=== PATIENT | male | born 1995 | race African-American/Black ===

== ENCOUNTER → 2021-02-27 | Outpatient (CLI) | payer BC, SELFPAY | END | disposition home or self-care (01) | PROVIDERS: Visit Provider Physician Assistant | DX: Z20.822 Contact with and (suspected) exposure to COVID-19 (principal) | CPT/HCPCS: 87635; U0005; U0003 ==

== ENCOUNTER 2024-12-30 08:52 | Observation (INO) | payer OTHER, SELFPAY ==
[2024-12-30] VITALS (9 sets, daily range): BP systolic 114–143; BP diastolic 57–85; PULSE 51–79; RESP 11–18; TEMP 36.2–37; O2SAT 98–100; BMI 22.8; BMI 22.9
[2024-12-30] MEDS: 0.9% Normal Saline (1000mL) 1,000 ML 999 ML IV (08:52)
--- NOTE | 2024-12-30 09:05 | CT_ITS ---
PROCEDURE: BRAIN/HEAD WITHOUT CONTRAST 12/30/2024 REASON FOR EXAM: NON-POSITIONAL VERTIGO TECHNIQUE: BRAIN/HEAD WITHOUT CONTRAST Coronal and Sagittal reconstruction series were provided. One or more dose reduction techniques were used (e.g., Automated exposure control, adjustment of the mA and/or kV according to patient size, use of iterative reconstruction technique. RADIATION DOSE SUMMARY: CTDlvol: <50 mGy DLP: 784 mGycm COMPARISON: None FINDINGS: Brain: There is no evidence of hemorrhage, acute ischemia or mass. No extra- axial fluid collection, midline shift or mass effect. CSF Spaces: Normal Sinuses/Mastoids: Clear. Middle ears are clear. Bones: None CT/Brain/Head without Contrast IMPRESSION: No acute intracranial abnormality. Reading Location: [id number]
--- NOTE | 2024-12-30 09:05 | CT_ITS ---
PROCEDURE: CTA HEAD AND NECK W/ CONTRAST 12/30/2024 REASON FOR EXAM: VERTIGO THAT IS NONPOSITIONAL TECHNIQUE: CTA HEAD AND NECK W/ CONTRAST Multiplanar Sagittal and Coronal images were obtained. 3D post processing was performed CONTRAST: Isovue 370 VOLUME: 100 mL One or more dose reduction techniques were used (e.g., Automated exposure control, adjustment of the mA and/or kV according to patient size, use of iterative reconstruction technique). RADIATION DOSE SUMMARY: CTDlvol: 25.5 mGy DLP: 1076.46 mGycm COMPARISON: None FINDINGS: Mildly enlarged right lobe of the thyroid gland. Subcentimeter hypodensity is seen in its inferior portion. Aortic Arch: Normal size and branching pattern. No significant atherosclerotic plaque. Brachiocephalic and Subclavians: Unremarkable RIGHT Carotid: Right CCA: Unremarkable. Right ICA: Unremarkable. Right ECA: Unremarkable. LEFT Carotid: Left CCA: Unremarkable. Left ICA: Unremarkable. Left ECA: Unremarkable. Vertebrals: Codominant. Arise from the subclavians. Both vertebrals form the basilar. RIGHT Vertebral: Unremarkable. LEFT Vertebral: Unremarkable. Anatomy: [place] anatomy is normal. Aneurysm or avm: No intracranial aneurysms or large vascular malformations are identified. Anterior cerebral arteries: Unremarkable: Middle cerebral arteries: Unremarkable. Basilar artery: Unremarkable. Posterior cerebral arteries: Unremarkable. Other major branches of the posterior circulation: Unremarkable. Major venous structures: Unremarkable. CT/CTA Head AND Neck W/ Contrast IMPRESSION: Unremarkable examination. Reading Location: [place] [id number]
--- NOTE | 2024-12-30 09:05 | CT_ITS ---
PROCEDURE: CTA CHEST W/WO CONTRAST 12/30/2024 REASON FOR EXAM: HARD TO BREATHE, NEAR SYNCOPE TECHNIQUE: CTA CHEST W/WO CONTRAST Multiplanar Sagittal and Coronal images were obtained. 3D post processing was performed CONTRAST: Isovue 370 VOLUME: 100 mL One or more dose reduction techniques were used (e.g., Automated exposure control, adjustment of the mA and/or kV according to patient size, use of iterative reconstruction technique). RADIATION DOSE SUMMARY: CTDlvol: 24.62 mGy DLP: 990.04 mGycm COMPARISON: None FINDINGS: Hardware: EKG electrodes. Lymph nodes: No significant lymphadenopathy is seen. Heart: Heart is not enlarged. No coronary artery calcification. Thoracic Aorta: No thoracic aortic aneurysm or dissection. Pulmonary Vessels: Well opacified. No evidence of pulmonary embolism. Lungs and Airways: Lungs are clear. Pleura: Unremarkable Upper Abdomen: Unremarkable Bones: Bone windows are unremarkable. CT/CTA Chest W/WO Contrast IMPRESSION: No evidence of pulmonary embolism. The lungs are clear. Reading Location: [place] [id number]
--- NOTE | 2024-12-30 09:07 | EKG12_ITS ---
Test Reason : SYNCOPE Blood Pressure : */* mmHG Vent. Rate : 75 BPM Atrial Rate : 75 BPM P-R Int : 156 ms QRS Dur : 84 ms QT Int : 356 ms P-R-T Axes : 76 85 60 degrees QTcB Int : 397 ms Normal sinus rhythm Normal ECG Confirmed by MARVIN LEIGH, NANCY ([id number]), desk editor MARIYA HENDRICKS ([id number]) on 01/02/2025 9:14:41 AM Referred By: [facility] Confirmed By: NANCY WONG MD
[2024-12-30 09:20] LABS: Hematocrit 35.9 % (40-54); Hemoglobin 11.9 g/dL (13.0-16.5); Immature Granulocytes Count 0.030 X10^3/uL (0.0-0.0); Mean Corp Hgb Conc 33.1 g/dL (32-36); Mean Corpuscular Volume 81.6 fL (80-94); Mean Platelet Vol. 10.4 fl (6.2-12.0); NRBC Flagged by Analyzer 0 % (0-5); Platelet Count 277 K/mm3 (150-450); RBC Distribution Width CV 13.0 % (11.6-14.6); RBC Distribution Width SD 38.8 fl (35.1-43.9); Red Blood Count 4.40 M/mm3 (4.6-6.2); White Blood Count 6.7 K/mm3 (4.4-11.0)
[2024-12-30 09:41] LABS: AST(SGOT) 19 U/L (<=37); Alanine Aminotransfer ALT/SGPT 16 U/L (<=46); Albumin, Serum 4.4 g/dL (3.5-5.0); Alkaline Phosphatase 47 U/L (40-129); Anion Gap 14 (5-15); BUN 20 mg/dL (4-19); BUN/Creat Ratio 20.8 RATIO (10-20); Calcium,Total 9.0 mg/dL (7.6-11.0); Carbon Dioxide 21.7 mmol/L (21.0-32.0); Chloride 103 mmol/L (98-108); Estimated Creatinine Clearance 131.43 ml/min (50-250); Globulin 2.2 g/dL (2.2-4.2); Glucose 122 mg/dL (70-99); Potassium 4.1 mmol/L (3.3-5.1)
--- OUTSIDE RECORDS SUMMARY | 2024-12-30 10:48 | XMS RPT_ITS | CCD ---
Author Organization [facility] Care Team Providers Care Production Inspector Name Role Phone KARLIARMAAN Unavailable Unavailable DAISHA BEAU M Unavailable Unavailable Kadie Zaman MD Primary Care Provider Kadie Zaman MD Primary Care Provider Kadie Zaman MD Primary Care Provider Felipa COMMERCIAL DESIGNER.BATCH TANK CONTROLLER, Abbie Unavailable Sergio COMMERCIAL DESIGNER.[employer]LE [employer] SQL DEVELOPER, Emily Unavailable SELF Referring Unavailable EMILY HILL Attending Unavailable KADIE ZAMAN Primary Care Unavailable EMILY HILL Referring Unavailable KADIE ZAMAN Primary Care Unavailable Allergies Allergy Classification Reported Allergen(s) Allergy Type Date of Onset Reaction(s) Facility (9 sources) black oak trees [Other] Propensity to adverse reactions 1 Other: See Comments [facility] Work Phone: Medications Current Medications Medication Drug Class(es) Dates Sig (Normalized) Sig (Original) [id number] 200 actuat albuterol 0.09 mg/actuat metered dose inhaler (18 sources) beta2-Adrenergic Agonist Start: 05-20-2013 End: 11-01-2024 take 2 puff(s) by inhalation every six hours as needed for wheezing albuterol HFA (PROVENTIL HFA, VENTOLIN HFA) 90 mcg/actuation inhaler Indications: Wheezing , History of asthma Inhale 2 puffs as instructed every 6 hours as needed for wheezing/shortness of breath. 1 each 2 11/01/2024 Active Comment on above: Inhale 2 Puffs as in structed every 6 hours as needed for wheezing/shortness of breath. (JACKIE for Ventolin with dose counter) cyclobenzaprine hydrochloride 10 mg oral tablet (4 sources) Muscle Relaxant Start: 11-02-2023 take 1 tablet by mouth three times daily as needed for pain cyclobenzaprine (FLEXERIL) 10 mg tablet Indications: Muscle pain Take 1 tablet by mouth three times a day as needed for pain. 90 tablet 11/02/2023 Active doxycycline hyclate 100 mg oral tablet (1 source) Tetracycline-class Drug Start: 07-06-2023 End: 07-13-2023 take 1 tablet by mouth twice daily doxycycline (VIBRA-TABS) 100 mg tablet Indications: Disease caused by mycoplasma Take 1 tablet by mouth two times a day for 7 days. 14 tablet 0 07/06/2023 07/13/2023 Active Comment on above: Take 1 tablet by aly th two times a day for 7 days. fluticasone propionate 0.05 mg/actuat metered dose nasal spray (16 sources) Corticosteroid Start: 08-08-2019 take 2 spray(s) by mouth once daily fluticasone (FLONASE) 50 mcg/actuation nasal spray Indications: Frequent sinus infections , Rhinitis, unspecified type Use 2 Sprays in each nostril once daily. Rinse mouth after use. 1 Bottle 2 08/08/2019 Active Comment on above: Use 2 Sprays in each nostril once daily. Rinse mouth after use. ibuprofen 600 mg oral tablet (6 sources) Nonsteroidal Anti-inflammatory Drug Start: 07-14-2023 take 1 tablet by mouth every eight hours as needed for pain ibuprofen (MOTRIN) 600 mg tablet Indications: Rib pain on right side Take 1 tablet by mouth every 8 hours as needed for pain. 30 tablet 07/14/2023 Active Comment on above: Take 1 tablet by aly th every 8 hours as needed for pain. loratadine 10 mg oral tablet (17 sources) Start: 08-08-2019 End: 09-14-2021 take 1 tablet by mouth once daily loratadine (CLARITIN) 10 mg tablet Indications: Seasonal allergic rhinitis, unspecified trigger Take 1 tablet by mouth once daily. 30 tablet 2 09/14/2021 Active Comment on above: Take 1 tablet by aly th once daily. Completed/Discontinued Medications Medication Drug Class(es) Dates Sig (Normalized) Sig (Original) ondansetron 4 mg disintegrating oral tablet (1 source) Serotonin-3 Receptor Antagonist Start: 08-08-2019 End: 09-14-2021 take 1 tablet by mouth every eight hours as needed for nausea and nausea ondansetron orally disintegrating (ZOFRAN ODT) 4 mg disintegrating tablet Indications: Nausea Take 1 tablet by mouth every 8 hours as needed for Nausea/Vomiting. 24 tablet 0 08/08/2019 09/14/2021 Discontinued (Other) Comment on above: Take 1 tablet by aly every 8 hours as needed for Nausea/Vomiting. sertraline 50 mg oral tablet (1 source) Serotonin Reuptake Inhibitor Start: 01-04-2021 End: 09-14-2021 take 0.5 tablet by mouth once daily, then take 1 tablet by mouth once daily sertraline (ZOLOFT) 50 mg tablet Indications: BECKIE (generalized anxiety disorder) , Current moderate episode of major depressive disorder without prior episode (HCC) Take 1/2 tablet by mouth daily for 1 week, then take 1 tablet daily. 30 tablet 2 01/04/2021 09/14/2021 Discontinued (Other) Comment on above: Take 1/2 tablet by out daily for 1 week, then take 1 tablet daily. Problems Active Problems Problem Classification Problem Date Documented Date Episodic/Chronic Asthma (20 sources) Mild intermittent asthma; Translations: [Mild intermittent asthma, uncomplicated] Onset: 07-07-2012 Chronic Attention-deficit, conduct, and disruptive behavior disorders (16 sources) Attention deficit hyperactivity disorder; Translations: [Attention-deficit hyperactivity disorder, unspecified type] 05-13-2021 Chronic Bacterial infection; unspecified site (2 sources) Mycoplasma infection; Translations: [Mycoplasma infection, unspecified site] 06-26-2023 Episodic Cardiac dysrhythmias (1 source) Palpitations; Translations: [Palpitations] Episodic Genitourinary symptoms and ill-defined conditions (20 sources) H/O: kidney disease; Translations: [Personal history of other diseases of urinary system] Onset: 07-08-2012 07-08-2012 Episodic Heart valve disorders (19 sources) Heart murmur; Translations: [Cardiac murmur, unspecified] Onset: 11-01-2024 07-07-2012 Episodic Immunizations and screening for infectious disease (10 sources) Patient encounter status; Translations: [Encounter for immunization] Onset: 11-01-2024 Episodic Nephritis; nephrosis; renal sclerosis (3 sources) Persistent hematuria; Translations: [Recurrent and persistent hematuria with unspecified morphologic changes] Onset: 11-01-2024 11-01-2024 Chronic Other connective tissue disease (1 source) Impingement syndrome of right shoulder region; Translations: [Impingement syndrome of right shoulder] Episodic Other connective tissue disease (2 sources) Muscle pain; Translations: [Myalgia, unspecified site] 11-02-2023 Episodic Other lower respiratory disease (2 sources) Wheezing; Translations: [Wheezing] Episodic Other lower respiratory disease (2 sources) Rib pain; Translations: [Pleurodynia] 07-14-2023 Episodic Other lower respiratory disease (1 source) H/O: asthma; Translations: [Personal history of other diseases of the respiratory system] 11-01-2024 Episodic Other lower respiratory disease (1 source) Wheezing; Translations: [Wheezing] Onset: 11-01-2024 Episodic Other lower respiratory disease (1 source) Personal history of other diseases of the respiratory system; Translations: [History of asthma] Onset: 11-01-2024 Episodic Other nervous system disorders (1 source) Bilateral carpal tunnel syndrome; Translations: [Carpal tunnel syndrome, bilateral upper limbs] Chronic Other non-traumatic joint disorders (1 source) Pain in right knee; Translations: [Pain in joint, lower leg] Episodic Other screening for suspected conditions (not mental disorders or infectious disease) (3 sources) Echocardiogram abnormal; Translations: [Abnormal findings on diagnostic imaging of heart and coronary circulation] Onset: 11-01-2024 11-01-2024 Episodic Other upper respiratory disease (1 source) Seasonal allergic rhinitis; Translations: [Other seasonal allergic rhinitis] Chronic Other upper respiratory infections (1 source) Chronic sinusitis; Translations: [Chronic sinusitis, unspecified] Chronic Screening and history of mental health and substance abuse codes (2 sources) Encounter for screening for depression; Translations: [Encounter for screening examination for other mental health and behavioral disorders] Onset: 11-01-2024 Episodic Past or Other Problems Problem Classification Problem Date Documented Da te Episodic/Chronic Essential hypertension (6 sources) Hypertensive disorder; Translations: [Essential (primary) hypertension] Onset: 07-08-2012 Resolved: 02-27-2015 02-27-2015 Chronic Other diseases of kidney and ureters (16 sources) Orthostatic proteinuria; Translations: [Orthostatic proteinuria, unspecified] Onset: 07-12-2012 08-17-2012 Episodic Other nutritional; endocrine; and metabolic disorders (6 sources) Obesity; Translations: [Obesity, unspecified] Onset: 08-17-2012 Resolved: 02-27-2015 02-27-2015 Chronic Residual codes; unclassified (18 sources) FH: Cardiomyopathy; Translations: [Family history of ischemic heart disease and other diseases of the circulatory system] Onset: 07-08-2012 07-08-2012 Episodic Residual codes; unclassified (15 sources) History of hematuria; Translations: [Personal history of other specified conditions] Onset: 02-27-2015 02-27-2015 Episodic Residual codes; unclassified (1 source) Family history of ischemic heart disease and other diseases of the circulatory system; Translations: [Family history of cardiomyopathy] Onset: 07-08-2012 Episodic Results Test Name Value Interpretation Reference Range Facility Comprehensive metabolic 2000 panelon 12-22-2024 Albumin [Mass/Vol] 4.9 g/dL Normal 3.9-4.9 [facility] Comment on above: Order Comment: Nam snyder Type: BLOOD SPECIMEN Ordering Facility: [facility] Address: [address] [place] [address] Performed By: #### 2 4323-8 #### [facility] CLIA [id number] [address] [place] [address] [place] ALP [Catalytic activity/Vol] 52 U/L Normal 38-113 [facility] Comment on above: Order Comment: Davidi lillian Type: BLOOD SPECIMEN Ordering Facility: [facility] Address: [address] [place] [address] Performed By: #### 2 4323-8 #### [facility] CLIA [id number] [address] [place] [address] [place] ALT [Catalytic activity/Vol] 13 U/L Normal 10-54 [facility] Comment on above: Order Comment: Davidi men Type: BLOOD SPECIMEN Ordering Facility: [facility] Address: [address] [place] [address] Performed By: #### 2 4323-8 #### [facility] CLIA [id number] [address] [place], [place] [id number] [place] Anion gap [Moles/Vol] 14 mmol/L Normal 8-15 [facility] Comment on above: Order Comment: Speci men Type: BLOOD SPECIMEN Ordering Facility: [facility] Address: [address] [place] [address] Performed By: #### 2 4323-8 #### [facility] CLIA [id number] [address] [place], [place] [address] [place] AST [Catalytic activity/Vol] 22 U/L Normal 14-40 [facility] Comment on above: Order Comment: Speci men Type: BLOOD SPECIMEN Ordering Facility: [facility] Address: [address] [place] [address] Performed By: #### 2 4323-8 #### [facility] CLIA [id number] [address] [place], [place] [address] [place] Bilirubin [Mass/Vol] 0.5 mg/dL Normal 0.2-1.3 [facility] Comment on above: Order Comment: Speci men Type: BLOOD SPECIMEN Ordering Facility: [facility] Address: [address] [place] [address] Performed By: #### 2 4323-8 #### [facility] CLIA [id number] [address] [place], [place] [address] [place] Calcium [Mass/Vol] 9.8 mg/dL Normal 8.5-10.2 [facility] Comment on above: Order Comment: Speci men Type: BLOOD SPECIMEN Ordering Facility: [facility] Address: [address] [place], [place] [id number] Performed By: #### 2 4323-8 #### [facility] CLIA [id number] [address] [place], [place] [address] [place] Chloride [Moles/Vol] 104 mmol/L Normal 98-107 [facility] Comment on above: Order Comment: Speci men Type: BLOOD SPECIMEN Ordering Facility: [facility] Address: [address] [place] [address] Performed By: #### 2 4323-8 #### [facility] CLIA [id number] [address] [place] [address] [place] CO2 [Moles/Vol] 23 mmol/L Normal 22-30 [facility] Comment on above: Order Comment: Speci men Type: BLOOD SPECIMEN Ordering Facility: [facility] Address: [address] [place] [address] Performed By: #### 2 4323-8 #### [facility] CLIA [id number] [address] [place] [address] [place] Creatinine [Mass/Vol] 0.89 mg/dL Normal 0.73-1.22 [facility] Comment on above: Order Comment: Speci men Type: BLOOD SPECIMEN Ordering Facility: [facility] Address: [address] [place] [address] Performed By: #### 2 4323-8 #### [facility] CLIA [id number] [address] [place] [address] [place] eGFRcr SerPlBld CKD-EPI 2020 120 mL/min/1.73m??? Normal >=60 [facility] Comment on above: Order Comment: Speci men Type: BLOOD SPECIMEN Ordering Facility: [facility] Address: [address] [place] [address] Result Comment: Bree mated Glomerular Filtration Rate (eGFR) is calculated using the 2020 CKD-EPI creatinine equation. This equation utilizes serum creatinine, sex, and age as parameters. The creatinine assay has traceable calibration to isotope dilution-mass spectrometry. Refer to KDIGO guidelines for clinical interpretation. In patients with unstable renal function, e.g. those with acute kidney injury, the eGFR may not accurately reflect actual GFR. Performed By: #### 2 4323-8 #### [facility] CLIA [id number] [address] [place] [address] [place] Glucose [Mass/Vol] 91 mg/dL Normal 74-99 [facility] Comment on above: Order Comment: Nam snyder Type: BLOOD SPECIMEN Ordering Facility: [facility] Address: [address] [place] [address] Result Comment: The [place] [employer] (ADA) provides guidance for cutoff values for fasting glucose and random glucose. The ADA defines fasting as no caloric intake for at least 8 hours. Fasting plasma glucose results between 100 to 125 mg/dL indicate increased risk for diabetes (prediabetes). Fasting plasma glucose results greater than or equal to 126 mg/dL meet the criteria for diagnosis of diabetes. In the absence of unequivocal hyperglycemia, results should be confirmed by repeat testing. In a patient with classic symptoms of hyperglycemia or hyperglycemic crisis, random plasma glucose results greater than or equal to 200 mg/dL meet the criteria for diagnosis of diabetes. Reference: Standards of Medical Care in Diabetes 2016, [place] [employer]. Diabetes Care. 2016.39(Suppl 1). Performed By: #### 2 4323-8 #### [facility] CLIA [id number] [address] [place] [address] [place] Potassium [Moles/Vol] 4.1 mmol/L Normal 3.7-5.1 [facility] Comment on above: Order Comment: Nam snyder Type: BLOOD SPECIMEN Ordering Facility: [facility] Address: [address] [place] [address] Performed By: #### 2 4323-8 #### [facility] CLIA [id number] [address] [place], [place] [address] [place] Protein [Mass/Vol] 7.5 g/dL Normal 6.3-8.0 [facility] Comment on above: Order Comment: Nam snyder Type: BLOOD SPECIMEN Ordering Facility: [facility] Address: [address] [place] [address] Performed By: #### 2 4323-8 #### [facility] CLIA [id number] [address] [place] [address] [place] Sodium [Moles/Vol] 141 mmol/L Normal 136-144 [facility] Comment on above: Order Comment: Speci men Type: BLOOD SPECIMEN Ordering Facility: [facility] Address: [address] [place] [address] Performed By: #### 2 4323-8 #### [facility] CLIA [id number] [address] [place] [address] [place] Urea nitrogen [Mass/Vol] 17 mg/dL Normal 9-24 [facility] Comment on above: Order Comment: Speci men Type: BLOOD SPECIMEN Ordering Facility: [facility] Address: [address] [place] [address] Performed By: #### 2 4323-8 #### [facility] CLIA [id number] [address] [place] [address] [place] Urinalysis complete panel (U )on 12-22-2024 Bacteria LM.HPF (Urine sed) [#/Area] Negative Normal Negative [facility] Comment on above: Order Comment: Speci men Type: URINE SPECIMEN Ordering Facility: [facility] Address: [address] [place] [address] Performed By: #### 2 4356-8 #### [facility] CLIA [id number] [address] [place] [address] [place] Bilirubin Ql (U) Negative Normal Negative [facility] Comment on above: Order Comment: Speci men Type: URINE SPECIMEN Ordering Facility: [facility] Address: [address] [place] [address] Performed By: #### 2 4356-8 #### [facility] CLIA [id number] [address] [place] [address] [place] Clarity (Unsp spec) Clear Normal Clear [facility] Comment on above: Order Comment: Speci men Type: URINE SPECIMEN Ordering Facility: [facility] Address: [address] [place] [address] Performed By: #### 2 4356-8 #### [facility] CLIA [id number] [address] [place] [address] [place] Color (U) Yellow Normal Yellow [facility] Comment on above: Order Comment: Speci men Type: URINE SPECIMEN Ordering Facility: [facility] Address: [address] [place] [address] Performed By: #### 2 4356-8 #### [facility] CLIA [id number] [address] [place] [address] [place] Epithelial cells LM.HPF (Urine sed) [#/Area] None Seen Normal [facility] Comment on above: Order Comment: Speci men Type: URINE SPECIMEN Ordering Facility: [facility] Address: [address] [place] [address] Performed By: #### 2 4356-8 #### [facility] CLIA [id number] [address] [place] [address] [place] Glucose Test strip (U) [Mass/Vol] Negative Normal Negative [facility] Comment on above: Order Comment: Speci men Type: URINE SPECIMEN Ordering Facility: [facility] Address: [address] [place] [address] Performed By: #### 2 4356-8 #### [facility] CLIA [id number] [address] [place] [address] [place] Hemoglobin Ql (U) 2+ Abnormal Negative [facility] Comment on above: Order Comment: Speci men Type: URINE SPECIMEN Ordering Facility: [facility] Address: [address] [place], [place] [address] Performed By: #### 2 4356-8 #### [facility] CLIA [id number] [address] [place] [address] [place] Hyaline casts (Urine sed) [#/Area] 0 /[LPF] Normal 0 /LPF [facility] Comment on above: Order Comment: Speci men Type: URINE SPECIMEN Ordering Facility: [facility] Address: [address] [place] [address] Performed By: #### 2 4356-8 #### [facility] CLIA [id number] [address] [place] [address] [place] Ketones Ql (U) Negative Normal Negative [facility] Comment on above: Order Comment: Speci men Type: URINE SPECIMEN Ordering Facility: [facility] Address: [address] [place] [address] Performed By: #### 2 4356-8 #### [facility] CLIA [id number] [address] [place] [address] [place] Leukocyte esterase Test strip Ql (U) Negative Normal Negative [facility] Comment on above: Order Comment: Speci men Type: URINE SPECIMEN Ordering Facility: [facility] Address: [address] [place] [address] Performed By: #### 2 4356-8 #### [facility] CLIA [id number] [address] [place] [address] [place] Nitrite Ql (U) Negative Normal Negative [facility] Comment on above: Order Comment: Speci men Type: URINE SPECIMEN Ordering Facility: [facility] Address: [address] [place] [address] Performed By: #### 2 4356-8 #### [facility] CLIA [id number] [address] [place] [address] [place] pH (U) 5.5 [pH] Normal 5.0-8.0 [facility] Comment on above: Order Comment: Speci men Type: URINE SPECIMEN Ordering Facility: [facility] Address: [address] [place] [address] Performed By: #### 2 4356-8 #### [facility] CLIA [id number] [address] [place] [address] [place] Protein (U) [Mass/Vol] Trace Abnormal Negative [facility] Comment on above: Order Comment: Speci men Type: URINE SPECIMEN Ordering Facility: [facility] Address: [address] [place] [address] Performed By: #### 2 4356-8 #### [facility] CLIA [id number] [address] [place] [address] [place] RBC LM.HPF (Urine sed) [#/Area] /[HPF] Abnormal 0-2 /HPF [facility] Comment on above: Order Comment: Speci men Type: URINE SPECIMEN Ordering Facility: [facility] Address: [address] [place] [address] Performed By: #### 2 4356-8 #### [facility] CLIA [id number] [address] [place] [address] [place] Specific gravity (U) [Rel density] 1.023 Normal 1.005-1.030 [facility] Comment on above: Order Comment: Speci men Type: URINE SPECIMEN Ordering Facility: [facility] Address: [address] [place] [address] Performed By: #### 2 4356-8 #### [facility] CLIA [id number] [address] [place] [address] [place] Urobilinogen Ql (U) 0.2 EU/dL Normal 0.2-1.0 EU/dL [facility] Comment on above: Order Comment: Speci men Type: URINE SPECIMEN Ordering Facility: [facility] Address: [address] [place] [address] Performed By: #### 2 4356-8 #### [facility] CLIA [id number] [address] [place] [address] [place] WBC LM.HPF (Urine sed) [#/Area] 0-5 /HPF Normal 0-5 /HPF [facility] Comment on above: Order Comment: Speci men Type: URINE SPECIMEN Ordering Facility: [facility] Address: [address] [place] [address] Performed By: #### 2 4356-8 #### [facility] CLIA [id number] [address] [place] [address] [place] [address] [place] CNOVon 11-01-2024 CNOV Office Visit ([facility] ) RAFY HONG ([id number]) 1995 M Date Time Provider Department 11/01/24 2:00 PM EMILY HILL [facility] During your visit today, we recorded the following information about you: Pulse Respiration Blood pressure Weight 63/minute 16/minute 114/68 83.7 kg Height 1.86 m Emily Hill APRN.[address]AC[address] SQL DEVELOPER 11/01/2024 3:00 PM Signed Subjective Patient ID: Rafy is a 28 year old male who presents for Physical. HPI Rafy Claire Hong is a 28-year-old male with a history of asthma, presenting for an annual wellness visit, with additional concerns of back pain, hematuria, and a heart murmur. Annual Wellness Exam: - No significant issues since last visit. - Adheres to a healthy diet and remains physically active. - Denies anxiety or depression. - Declines a COVID booster. - No current use of muscle relaxers or ibuprofen for back pain. Asthma: - Denies current symptoms; has not used an inhaler recently. - Reports outgrowing most symptoms since childhood. - Previously required daily inhaler and breathing treatments. - Denies recent dyspnea. - Reports seasonal allergies, but no significant symptoms this year. - Uses Flonase and Claritin PRN. Back Pain: - Intermittent back pain, exacerbated by bending and lifting. - No need for refills of muscle relaxers or ibuprofen. Hematuria: - History of persistent microscopic hematuria. - Evaluated by a pediatric kidney specialist in [place] before age 19-2012. - Recent ultrasound at [place] to assess bladder emptying; no recent specialist visits. -US kidney last year, did not see urology or nephrology. Heart Murmur: - History of heart murmur monitored by cardiology during childhood. - No recent follow-up. - Denies chest pain, palpitations, or dyspnea. - Reports occasional dizziness with positional changes, resolving within seconds to minutes. - No limitations on walking or climbing stairs. - Echo 2013, painting instructor. Family History: - Rafy's mother has stage 3 heart failure. ROS Eyes: (-) itchy eyes Ears/Nose/Mouth/Throat : (-) rhinorrhea Cardiovascular: (-) chest pain, (-) palpitations, (-) exercise intolerance Respiratory: (-) shortness of breath, (-) wheezing Musculoskeletal: (+) intermittent musculoskeletal pain Neurological: (+) dizziness Objective BP 114/68 Pulse 63 Resp 16 Ht 186 cm (6' 1.23) Wt 83.7 kg (184 lb 8.4 oz) BMI 24.19 kg/m? Physical Exam Vitals and nursing note reviewed. Constitutional: Appearance: Normal appearance. HENT: Head: Normocephalic and atraumatic. Eyes: Conjunctiva/sclera: Conjunctivae normal. Neck: Thyroid: No thyroid mass or thyromegaly. Vascular: Normal carotid pulses. No carotid bruit or JVD. Cardiovascular: Rate and Rhythm: Normal rate and regular rhythm. Pulses: Carotid pulses are 2+ on the right side and 2+ on the left side. Radial pulses are 2+ on the right side and 2+ on the left side. Heart sounds: Normal heart sounds. Pulmonary: Effort: Pulmonary effort is normal. Breath sounds: Normal breath sounds. Abdominal: General: Bowel sounds are normal. Palpations: Abdomen is soft. Musculoskeletal: Right lower leg: No edema. Left lower leg: No edema. Skin: General: Skin is warm and dry. Neurological: General: No focal deficit present. Mental Status: He is alert and oriented to person, place, and time. Latest Ref Rn 11/02/2023 Protein, Total 6.3 - 8.0 g/dL 7.0 Albumin 3.9 - 4.9 g/dL 4.6 Calcium 8.5 - 10.2 mg/dL 9.7 Bilirubin, Total 0.2 - 1.3 mg/dL 0.4 Alkaline Phosphatase 38 - 113 U/L 46 AST 14 - 40 U/L 18 ALT 10 - 54 U/L 10 Glucose 74 - 99 mg/dL 93 BUN 9 - 24 mg/dL 21 Creatinine 0.73 - 1.22 mg/dL 0.98 Sodium 136 - 144 mmol/L 139 Potassium 3.7 - 5.1 mmol/L 4.4 Chloride 98 - 107 mmol/L 104 CO2 22 - 30 mmol/L 26 Anion Gap 8 - 15 mmol/L 9 eGFR >=60 mL/min/1.73m? 109 Total Cholesterol, Nonfasting <200 mg/dL 171 Triglycerides, Nonfasting <150 mg/dL 43 HDL Cholesterol, Nonfasting >39 mg/dL 62 LDL Cholesterol Calculated, Nonfasting <100 mg/dL 100 (H) Non HDL Cholesterol, Nonfasting <130 mg/dL 109 VLDL Cholesterol, Nonfasting <30 mg/dL 9 Total Chol/HDL Ratio, Nonfasting <5.10 mg/dL 2.76 LDL/HDL Ratio, Nonfasting <2.54 mg/dL 1.61 1. Wellness examination (Z00.00) - Conducted a comprehensive wellness examination. - Vital signs including blood pressure and heart rate are within normal limits. - Patient is maintaining a healthy diet and staying active. - No significant issues reported since the last visit. -US kidney 2023 unremarkable. 2. Screening for depression (Z13.31) 3. Encounter for screening examination for other mental health and behavioral disorders (Z13.39) - Screened for anxiety and depression; no concerns reported. 4. Encounter for immunization (Z23) - Discussed COVID booster; no decision m (more content not included)... Normal [facility] XR Ribs - right Views and est PAon 07-14-2023 IMPRESSION: No radiographic evidence of acute displaced right rib fracture. Field Agronomist: [facility] Transcribe Date/Time: Jul 14 2023 12:47P Dictated by : SHANAE DIAZ MD This examination was interpreted and the report reviewed and electronically signed by: SHANAE DIAZ MD on Jul 14 2023 12:48PM [facility] DIVISION OF RADIOLOGY * * *Final Report* * * DATE OF EXAM: Jul 14 2023 12:43PM WOX [id number] - XR RIB/CHST 3V AP RIB/OBL/CHST R / PROCEDURE REASON: Rib pain on right side * * * * Physician Interpretation * * * * TITLE: XR RIB/CHST 3V AP RIB/OBL/CHST R CLINICAL INDICATION: Right rib pain TECHNIQUE: 3 view right sided rib series with inclusion of a single frontal view of the chest COMPARISON: Remote chest x-ray dated July 06, 2008 FINDINGS: Normal cardiomediastinal silhouette. No focal consolidation. No discernible pleural effusion or pneumothorax. No acute displaced right rib fracture identified. DIVISION OF RADIOLOGY Provider, [facility] - 07/14/2023 * * *Final Report* * * DATE OF EXAM: Jul 14 2023 12:43PM WOX [id number] - XR RIB/CHST 3V AP RIB/OBL/CHST R / PROCEDURE REASON: Rib pain on right side * * * * Physician Interpretation * * * * TITLE: XR RIB/CHST 3V AP RIB/OBL/CHST R CLINICAL INDICATION: Right rib pain TECHNIQUE: 3 view right sided rib series with inclusion of a single frontal view of the chest COMPARISON: Remote chest x-ray dated July 06, 2008 FINDINGS: Normal cardiomediastinal silhouette. No focal consolidation. No discernible pleural effusion or pneumothorax. No acute displaced right rib fracture identified. IMPRESSION IMPRESSION: No radiographic evidence of acute displaced right rib fracture. Field Agronomist: [facility] Transcribe Date/Time: Jul 14 2023 12:47P Dictated by : SHANAE DIAZ MD This examination was interpreted and the report reviewed and electronically signed by: SHANAE DIAZ MD on Jul 14 2023 12:48PM EST [facility] Radiology Study observation (narrative) [facility] XR Ribs - right Views and Ch est PAOrdered By: [facility] Provider on 07-14-2023 [facility] US Kidney - bilateral and Ur inary bladderon 06-26-2023 [facility] URINALYSIS, REFLEX MICROSCOP ICon 06-24-2023 Bacteria LM.HPF (Urine sed) [#/Area] Negative Negative /HPF [facility] Bilirubin Ql (U) Negative Negative [facility] Clarity (Unsp spec) Clear Clear [facility] Color (U) Yellow Yellow [facility] Epithelial cells LM.HPF (Urine sed) [#/Area] None Seen [facility] Glucose Test strip (U) [Mass/Vol] Negative Negative [facility] Hemoglobin Ql (U) 3+ Abnormal Negative [facility] Hyaline casts (Urine sed) [#/Area] 1-3 /LPF Abnormal 0 /LPF [facility] Ketones Ql (U) Negative Negative [facility] Leukocyte esterase Test strip Ql (U) Negative Negative [facility] Nitrite Ql (U) Negative Negative [facility] pH (U) 5.5 [pH] <8.5 [facility] Protein (U) [Mass/Vol] Negative Negative [facility] RBC LM.HPF (Urine sed) [#/Area] 3-5 /HPF Abnormal 0-2 /HPF [facility] Specific gravity (U) [Rel density] 1.028 1.005 - 1.030 [facility] Urobilinogen Ql (U) 0.2 EU/dL 0.2-1.0 EU/dL [facility] WBC LM.HPF (Urine sed) [#/Area] 0-5 /HPF 0-5 /HPF [facility] UA DIP, URINE (POC)on 2023 BILIRUBIN UA (POCT) Negative Negative [facility] CLARITY UA (POCT) Clear [facility] COLOR UA (POCT) Minerva [facility] GLUCOSE UA (POCT) Negative Negative mg/dL [facility] Hemoglobin Ql (U) Moderate Abnormal Negative [facility] KETONE UA (POCT) Negative Negative mg/dL [facility] LEUKOCYTES UA (POCT) Negative Negative [facility] NITRITE UA (POCT) Negative Negative [facility] PH UA (POCT) 5.5 4.5 - 8.0 [facility] Protein Ql (U) Negative Negative mg/dL [facility] SPECIFIC GRAVITY UA (POCT) >=1.030 1.005 - 1.030 [facility] UROBILINOGEN UA (POCT) 0.2 E.U./dL Normal E.U./dL [facility] Comprehensive metabolic 2000 panelon 09-20-2022 Albumin [Mass/Vol] 5.1 g/dL High 3.9 - 4.9 g/dL [facility] ALP [Catalytic activity/Vol] 54 U/L 38 - 113 U/L [facility] ALT [Catalytic activity/Vol] 11 U/L 10 - 54 U/L [facility] Anion gap [Moles/Vol] 13 mmol/L 9 - 18 mmol/L [facility] AST [Catalytic activity/Vol] 22 U/L 14 - 40 U/L [facility] Bilirubin [Mass/Vol] 0.7 mg/dL 0.2 - 1.3 mg/dL [facility] Calcium [Mass/Vol] 9.8 mg/dL 8.5 - 10. 2 mg/dL [facility] Chloride [Moles/Vol] 101 mmol/L 97 - 105 mmol/L [facility] CO2 [Moles/Vol] 24 mmol/L 22 - 30 mmol/L [facility] Creatinine [Mass/Vol] 1.07 mg/dL 0.73 - 1.22 mg/dL [facility] Estimated Glomerular Filtration Rate 99 mL/min/1.73m >=60 mL/min/1.73m [facility] Glucose [Mass/Vol] 84 mg/dL 74 - 99 mg/dL [facility] Potassium [Moles/Vol] 4.5 mmol/L 3.7 - 5.1 mmol/L [facility] Protein [Mass/Vol] 7.7 g/dL 6.3 - 8.0 g/dL [facility] Sodium [Moles/Vol] 138 mmol/L 136 - 144 mmol/L [facility] Urea nitrogen [Mass/Vol] 13 mg/dL 9 - 24 mg/dL [facility] TSH BLDon 09-20-2022 TSH Qn 0.657 m[IU]/L 0.270 - 4.200 mIU/L [facility] CBC panel Auto (Bld)on 09-19 Erythrocyte distribution width (RBC) [Ratio] 13.1 % 11.5 - 15.0 % [facility] Hematocrit (Bld) [Volume fraction] 42.6 % 39.0 - 51.0 % [facility] Hemoglobin (Bld) [Mass/Vol] 13.6 g/dL 13.0 - 17.0 g/dL [facility] MCH (RBC) [Entitic mass] 26.9 pg 26.0 - 34.0 pg [facility] MCHC (RBC) [Mass/Vol] 31.9 g/dL 30.5 - 36.0 g/dL [facility] MCV (RBC) [Entitic vol] 84.4 fL 80.0 - 100.0 fL [facility] Nucleated RBC (Bld) [#/Vol] <0.01 k/uL [facility] Platelet mean volume (Bld) [Entitic vol] 10.3 fL 9.0 - 12.7 fL [facility] Platelets (Bld) [#/Vol] 329 10*3/uL 150 - 400 k/uL [facility] RBC (Bld) [#/Vol] 5.05 10*6/uL 4.20 - 6.0 0 m/uL [facility] WBC (Bld) [#/Vol] 6.83 10*3/uL 3.70 - 11. 00 k/uL [facility] COVID 19, HALEY [facility](RT COLLECT )on 02-28-2021 SARS-CoV-2 (COVID-19) RNA HALEY+probe Ql (Unsp spec) Not detected Normal Not Detect [facility] Comment on above: Order Comment: Reaso n for Exam: exposure Result Comment: Norm al Reference Range: Not Detected Method:(RT-PCR) real-time reverse transcriptase PCR [employer] Ter[employer] Radios Instrument *The Food and Drug Administration (FDA) has issued an Emergency Use Authorization (EAU) for the Ter[employer]ios SARS-CoV-2 Assay for the rapid detection of the virus that causes COVID-19. This test has been validated, but the FDAs independent review of this validation is pending. *Negative results do not preclude infection and should not be used as the sole basis for treatment or patient management. Optimum specimen types and timing for peak viral levels during infections caused by SARS-CoV-2 have not been determined. Collection of multiple specimens from the same patient may be necessary to detect the virus. The possibility of a false negative result should be considered if the patient has clinical presentation or has had recent exposure. Performed By: #### L [id number] #### [facility] [address] [place], [address] Urgent Care Visit Reporton 1 Urgent Care Visit Report [facility] [address] [place] [address] 6 [place], [place] [address] OFFICE VISIT Date of Service: 02/27/21 MR#: [id number] Acct: [id number] Name: RAFY HONG Rep #: [id number] : 1995 Provider: WAGNER reed Age/Sex: 25/M Location: [facility] Status: Signed Intake Vital Signs 02/27/21 16:55 Weight: 206 lb 6 oz BP 122/68 H Blood Pressure Location Lt brachial Position Sitting Respiration 16 Pulse 63 Pulse Source Monitor Temp 97.5 F L Temp Source Temporal Pulse Oximetry (%) 98 Oxygen Delivery Method room air Intake Visit Reasons: COVID HPI HPI Details: RAFY HONG, is a 25 M who presents to the office today for covid19 screening, and live-in girlfriend w/ uri complaints has been exposed to co-workers dx'd w/ COVID19. Asymptomatic. ROS Const Constitutional: No other (as above) Exam Const General: cooperative, healthy appearing, comfortable and no acute distress Nutritional Appearance: average body habitus and well nourished Orientation: alert, awake and oriented x3 HENMT Head: normal to inspection Ears: hearing grossly normal bilaterally, external ears normal, TM's normal bilaterally and EAC's normal Nose: external nose normal, nares normal, septum normal and no nasal discharge Mouth: oral mucosae normal, lip normal, tongue normal and moist mucous membranes Throat: posterior oropharynx normal, tonsils normal, uvula midline and postnasal drainage Eyes General: appearance normal, both eyes and all related structures Neck Neck: normal visual inspection, full ROM, no lymphadenopathy, no meningeal signs and supple Neck mass: No Thyroid: thyroid normal Lymphatic: no lymphadenopathy noted Chest Chest palpation inspection: normal inspection of the chest Resp Effort Inspection: normal respiratory effort, able to speak in complete sentences, symmetric chest movement and no cough Auscultation: Bilateral: Clear to Auscultation Cardio Palpation: normal PMI Rate: regular rate Rhythm: regular rhythm Heart Sounds: S1 normal, S2 normal, no gallops, no murmurs and no rubs Pulses: radial pulses present GI Inspection: normal to inspection Palpation: soft and nontender Skin General: no rashes or lesions noted Neuro General: patient alert, patient awake, patient oriented x3 and gait normal Cognition: normal cognition Speech: speech normal Gait: normal gait Motor: muscle tone normal throughout Sensory Exam: no sensory deficits noted Psych Appearance: grossly normal Mental Status: mental status grossly normal Mood: congruent mood Affect: normal affect Speech and Movement: speech and movement normal Attitude: cooperative Thought Process: normal Thought Content: normal Judgment: judgment good Coding Level of Care Code Off vis,new,level 2 Diagnoses Exposure to COVID-19 virus Z20.822 Assessment and Plan Assessment and Plan (1) Exposure to COVID-19 virus: Status: Acute Orders: Orders: COVID 19, PCR [facility](RT COLLECT) Today Z20.822 Plan - Pascual EDWARD PA: Nasopharyngeal swab obtained for send out for COVID-19 screening to [facility] lab; patient aware we will contact them once results are available. Follow-up with the now clinic on an as-needed basis only. Patient states acknowledging understanding all the above. This note was generated with Biba dictation software. It may contain incorrect words, spelling, and punctuation that were not noted in checking the note before signing. 02/27/21 1753 Date Pascual EDWARD Cosigner Signature: Date (if applicable) CC: Normal [facility] CR Hand Complete 3+ Views Jeannette henning 10-15-2018 CR Hand Complete 3+ Views Right Patient Name: RAFY HONG Diagnostic Radiology Exam Date/Time 10/15/2018 19:23:30 EDT Exam CR Hand Complete 3+ Views Right Ordering Physician WAGNER TALLEY TAYLOR Accession Number [id number] CPT4 Codes 71154 () Reason For Exam right hand pain, ulnar, punched door, obvious deformity Report Examination: Right hand Clinical Indication: Pain and deformity after punching door Comparison: None Findings: Three views right hand demonstrate a transverse mid diaphysis fracture of the fifth metacarpal. The distal fracture fragment is minimally displaced laterally and exhibits moderate apex dorsal angulation measuring 60 degrees. There is slight clockwise rotation of the distal fracture fragment. There is associated soft tissue swelling. No intra-articular fracture extension. No other fracture identified. There is a small bone island within the third metacarpal head. Impression: Transverse, mildly displaced and moderately angulated mid diaphysis fifth metacarpal fracture. Report Dictated on Final Dictating Physician: MD ANDREA ANTHONY J Signed Date and Time: 10/15/2018 7:35 pm Signed by: MD ANDREA ANTHONY J Transcribed Date and Time: 10/15/2018 7:36 Normal [facility] Emergency Room Note on 06-26-2017 [place] [facility] Note Normal [facility] [place] Pat Eduon 06-26-2017 Pat Edu Normal [facility] [place] Patient Summary Documentson 06-26-2017 Patient Summary Documents Normal [facility] [place] Vital Signs Date Time Vital Sign Value Performing Clinician Facility 11-01-2024 14:00-0400 Body height 186 cm Emily Hill COMMERCIAL DESIGNER.[address] SQL DEVELOPER Work Phone: [facility] 11-01-2024 14:00-0400 Body mass index (BMI) [Ratio] 24.19 kg/m2 Emily Hill COMMERCIAL DESIGNER.[address] SQL DEVELOPER Work Phone: [facility] 11-01-2024 14:00-0400 Body weight 83.7 kg Emily Hill COMMERCIAL DESIGNER.[address] SQL DEVELOPER Work Phone: [facility] 11-01-2024 14:00-0400 Diastolic blood pressure 68 mm[Hg] Emily Hill COMMERCIAL DESIGNER.[address] SQL DEVELOPER Work Phone: [facility] 11-01-2024 14:00-0400 Heart rate 63 /min Emily Hill COMMERCIAL DESIGNER.[address] SQL DEVELOPER Work Phone: [facility] 11-01-2024 14:00-0400 Respiratory rate 16 /min Emily Hill COMMERCIAL DESIGNER.[address] SQL DEVELOPER Work Phone: [facility] 11-01-2024 14:00-0400 Systolic blood pressure 114 mm[Hg] Emily Hill COMMERCIAL DESIGNER.[address] SQL DEVELOPER Work Phone: [facility] 11-02-2023 09:18-0400 Body height 190.5 cm Abbie Felipa COMMERCIAL DESIGNER.BATCH TANK CONTROLLER Work Phone: [facility] 11-02-2023 09:18-0400 Body mass index (BMI) [Ratio] 24.25 kg/m2 Abbie Felipa COMMERCIAL DESIGNER.BATCH TANK CONTROLLER Work Phone: [facility] 11-02-2023 09:18-0400 Body weight 88 kg Abbie Felipa COMMERCIAL DESIGNER.BATCH TANK CONTROLLER Work Phone: [facility] Comment on above: with steel toe boots 11-02-2023 09:18-0400 Diastolic blood pressure 62 mm[Hg] Abbie Felipa COMMERCIAL DESIGNER.BATCH TANK CONTROLLER Work Phone: [facility] 11-02-2023 09:18-0400 Heart rate 76 /min Abbie Felipa COMMERCIAL DESIGNER.BATCH TANK CONTROLLER Work Phone: [facility] 11-02-2023 09:18-0400 Respiratory rate 12 /min Abbie Felipa COMMERCIAL DESIGNER.BATCH TANK CONTROLLER Work Phone: [facility] 11-02-2023 09:18-0400 SaO2% (BldA) [Mass fraction] 100 % Abbie Felipa COMMERCIAL DESIGNER.BATCH TANK CONTROLLER Work Phone: [facility] 11-02-2023 09:18-0400 Systolic blood pressure 136 mm[Hg] Abbie Felipa COMMERCIAL DESIGNER.BATCH TANK CONTROLLER Work Phone: [facility] 07-14-2023 12:22-0500 Body temperature 97.59 [degF] Camila Praisler-Wood COMMERCIAL DESIGNER.BATCH TANK CONTROLLER Work Phone: [facility] 07-14-2023 12:22-0500 Body weight 86.18 kg Camila Prajyothiler-Wood COMMERCIAL DESIGNER.BATCH TANK CONTROLLER Work Phone: [facility] 07-14-2023 12:22-0500 Diastolic blood pressure 74 mm[Hg] Camila Praisler-Wood COMMERCIAL DESIGNER.BATCH TANK CONTROLLER Work Phone: [facility] 07-14-2023 12:22-0500 Heart rate 53 /min Camila Praisler-Wood COMMERCIAL DESIGNER.BATCH TANK CONTROLLER Work Phone: [facility] 02-27-2024 12:22-0500 Respiratory rate 18 /min Camila Praisler-Wood COMMERCIAL DESIGNER.BATCH TANK CONTROLLER Work Phone: [facility] 07-14-2023 12:22-0500 SaO2% (BldA) [Mass fraction] 99 % Camila Praisler-Wood COMMERCIAL DESIGNER.BATCH TANK CONTROLLER Work Phone: [facility] 07-14-2023 12:22-0500 Systolic blood pressure 129 mm[Hg] Camila Praisler-Wood COMMERCIAL DESIGNER.BATCH TANK CONTROLLER Work Phone: [facility] 06-24-2023 13:07-0500 Body weight 88.22 kg Abbie Felipa COMMERCIAL DESIGNER.BATCH TANK CONTROLLER Work Phone: [facility] 06-24-2023 13:07-0500 Diastolic blood pressure 84 mm[Hg] Abbie Felipa COMMERCIAL DESIGNER.BATCH TANK CONTROLLER Work Phone: [facility] 06-24-2023 13:07-0500 Heart rate 56 /min Abbie Felipa COMMERCIAL DESIGNER.BATCH TANK CONTROLLER Work Phone: [facility] 06-24-2023 13:07-0500 Respiratory rate 16 /min Abbie Felipa COMMERCIAL DESIGNER.BATCH TANK CONTROLLER Work Phone: [facility] 06-24-2023 13:07-0500 SaO2% (BldA) [Mass fraction] 97 % Abbie Felipa COMMERCIAL DESIGNER.BATCH TANK CONTROLLER Work Phone: [facility] 06-24-2023 13:07-0500 Systolic blood pressure 128 mm[Hg] Abbie Felipa COMMERCIAL DESIGNER.BATCH TANK CONTROLLER Work Phone: [facility] 06-23-2023 16:05-0500 Body temperature 98.4 [degF] Matthew Pendlebury COMMERCIAL DESIGNER.BATCH TANK CONTROLLER Work Phone: [facility] 06-23-2023 16:05-0500 Body weight 89.36 kg Matthew Pendlebury COMMERCIAL DESIGNER.BATCH TANK CONTROLLER Work Phone: [facility] 06-23-2023 16:05-0500 Diastolic blood pressure 83 mm[Hg] Matthew Pendlebury COMMERCIAL DESIGNER.BATCH TANK CONTROLLER Work Phone: [facility] 06-23-2023 16:05-0500 Heart rate 60 /min Matthew Tillman COMMERCIAL DESIGNER.BATCH TANK CONTROLLER Work Phone: [facility] 06-23-2023 16:05-0500 Respiratory rate 18 /min Matthew Tillman COMMERCIAL DESIGNER.BATCH TANK CONTROLLER Work Phone: [facility] 06-23-2023 16:05-0500 SaO2% (BldA) [Mass fraction] 100 % Matthew Tillman COMMERCIAL DESIGNER.BATCH TANK CONTROLLER Work Phone: [facility] 06-23-2023 16:05-0500 Systolic blood pressure 132 mm[Hg] Matthew Tillman COMMERCIAL DESIGNER.BATCH TANK CONTROLLER Work Phone: [facility] 09-19-2022 14:57-0400 Body height 190.5 cm Kadie Zaman MD Work Phone: [facility] 09-19-2022 14:57-0400 Body temperature 98.1 [degF] Kadie Zaman MD Work Phone: [facility] 09-19-2022 14:57-0400 Body weight 94.8 kg Kadie Zaman MD Work Phone: [facility] 09-19-2022 14:57-0400 Diastolic blood pressure 62 mm[Hg] Kadie Zaman MD Work Phone: [facility] 09-19-2022 14:57-0400 Heart rate 59 /min Kadie Zaman MD Work Phone: [facility] 09-19-2022 14:57-0400 Respiratory rate 18 /min Kadie Zaman MD Work Phone: [facility] 09-19-2022 14:57-0400 SaO2% (BldA) [Mass fraction] 97 % Kadie Zaman MD Work Phone: [facility] 09-19-2022 14:57-0400 Systolic blood pressure 120 mm[Hg] Kadie Zaman MD Work Phone: [facility] 09-14-2021 08:49-0400 Body height 190.5 cm Kadie Zaman MD Work Phone: [facility] 09-14-2021 08:49-0400 Body weight 94.35 kg Kadie Zaman MD Work Phone: [facility] 09-14-2021 08:49-0400 Diastolic blood pressure 82 mm[Hg] Kadie Zaman MD Work Phone: [facility] 09-14-2021 08:49-0400 Heart rate 74 /min Kadie Zaman MD Work Phone: [facility] 09-14-2021 08:49-0400 Systolic blood pressure 130 mm[Hg] Kadie Zaman MD Work Phone: [facility] Encounters Encounter Date Encounter Type Care Provider Facility Start: 12-26-2024 End: 12-27-2024 Refill Kadie Zaman MD Work Phone: [facility] [place] Comment on above: Refill Request Start: 12-22-2024 End: 12-22-2024 ambulatory [facility] Facility:[facility] Start: 11-01-2024 End: 11-01-2024 Patient encounter procedure Emily Hill APRN.[address] SQL DEVELOPER Work Phone: [facility] [place] Comment on above: Wellness examination (Primary Dx); Screening for depression; Encounter for screening examination for other mental health and behavioral disorders; Encounter for immunization; Microscopic hematuria; Wheezing; History of asthma; Family history of cardiomyopathy; Abnormal echocardiogram; Murmur; Mild intermittent asthma without complication (HCC); Persistent hematuria Start: 11-01-2024 End: 11-01-2024 Patient encounter status Emily Hill APRN.ORACLE PL SQL DEVELOPER Work Phone: [facility] Start: 11-01-2024 End: 11-01-2024 ambulatory SELF Facility:[facility] [place] Start: 11-01-2024 Encounter for genera l adult medical examination without abnormal findings EMILY [facility] Start: 11-02-2023 End: 11-02-2023 Patient encounter procedure Abbie Leo APRN.BATCH TANK CONTROLLER Work Phone: [facility] [place] Comment on above: Wellness examination (Primary Dx); Muscle pain; Other microscopic hematuria; Encounter for therapeutic drug monitoring; Screening for lipid disorders; Encounter for screening for diabetes mellitus Start: 11-02-2023 End: 11-02-2023 Patient encounter status Abbie Leo APRN.BATCH TANK CONTROLLER Work Phone: [facility] Work Phone: Start: 09-25-2023 Telephone encounter Kadie cole MD Work Phone: [facility] [place] Comment on above: Reschedule Yearly fr om 09/25/23 (Patient had to leave due to provider running behind) Start: 07-14-2023 End: 07-14-2023 Subsequent hospital visit by physician [facility] [place] Work Phone: Radiology Comment on above: Rib pain on right si de [R07.81] Start: 07-14-2023 End: 07-14-2023 Patient encounter procedure Camila Kerr APRN.BATCH TANK CONTROLLER Work Phone: [facility] Comment on above: Rib pain on right si de (Primary Dx) Start: 07-06-2023 ambulatory Kadie butcher MD Work Phone: [facility] [place] Comment on above: 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 Start: 06-26-2023 End: 06-26-2023 Subsequent hospital visit by physician [facility] Work Phone: Radiology Comment on above: Other microscopic he maturia [R31.29] Start: 06-25-2023 Telephone encounter Matthew barger APRN.BATCH TANK CONTROLLER Work Phone: [facility] Comment on above: Results Start: 06-24-2023 ambulatory Abbie INIGUEZBATCH TANK CONTROLLER Work Phone: [facility] [place] Comment on above: Urine sample and ulysses ting Start: 06-24-2023 Telephone encounter Abiel Cano MD Work Phone: [facility] Comment on above: Results (Hematuria, casts) Start: 06-24-2023 End: 06-24-2023 Patient encounter procedure Abbie Felipa COMMERCIAL DESIGNER.BATCH TANK CONTROLLER Work Phone: [facility] [place] Comment on above: Other microscopic he maturia (Primary Dx) Start: 06-23-2023 End: 06-23-2023 Office outpatient visit 15 minutes Matthew Primo COMMERCIAL DESIGNER.BATCH TANK CONTROLLER Work Phone: [facility] Comment on above: Dysuria (Primary Dx) ; Hematuria, unspecified type Start: 09-19-2022 End: 09-19-2022 Patient encounter procedure Kadie Zaman MD Work Phone: [facility] [place] Comment on above: Routine medical exam (Primary Dx); Mild intermittent asthma without complication; Bilateral carpal tunnel syndrome; History of glomerulonephritis; Asymptomatic microscopic hematuria; Chronic pain of both knees; Palpitations; Impingement syndrome of right shoulder; Encounter for immunization; Special screening examination for viral disease; Screening for HIV (human immunodeficiency virus) Start: 09-19-2022 End: 09-19-2022 Patient encounter status Kadie Zaman MD Work Phone: [facility] [place] Start: 09-14-2021 End: 09-14-2021 Patient encounter procedure Kadie Zaman MD Work Phone: [facility] [place] Comment on above: Routine medical exam (Primary Dx); Sinobronchitis; Seasonal allergic rhinitis, unspecified trigger; Wheezing; Mild intermittent asthma without complication Start: 09-14-2021 End: 09-14-2021 Patient encounter status Kadie Zaman MD Work Phone: [facility] [place] Start: 06-26-2017 End: 06-26-2017 Emergency department patient visit [facility] Facility:B Procedures Date Procedure Procedure Detail Performing Clinician Start: 11-01-2024 Adult depression scr eening assessment Emily Hill COMMERCIAL DESIGNER.ORACLE PL SQL DEVELOPER Work Phone: Start: 11-02-2023 Adult depression scr eening assessment X[facility] [place] Work Phone: Start: 07-14-2023 Radex ribs uni w/pos teroant ch minimum 3 views Camila Kerr COMMERCIAL DESIGNER.BATCH TANK CONTROLLER Work Phone: Start: 06-26-2023 Us retroperitoneal r eal time w/image complete Abbie Leo COMMERCIAL DESIGNER.BATCH TANK CONTROLLER Work Phone: Start: 06-23-2023 Urnls dip stick/tabl et reagent auto microscopy Matthew Primo COMMERCIAL DESIGNER.BATCH TANK CONTROLLER Work Phone: Start: 06-23-2023 Urnls dip stick/tabl et rgnt auto w/o microscopy [facility] Provider Start: 09-14-2021 Adult depression scr eening assessment Kadie Zaman MD Work Phone: Plan of Treatment Date Care Activity Detail Author Start: 09-19-2032 Urine microalbumin profile [facility] Start: 11-01-2025 End: 11-01-2025 Patient encounter procedure 11/01/2025 3:00 PM EDT Office Visit [facility] [place] [address] [place], [place] [phone] Kadie Zaman MD [address] [place], [place] [phone] Annual exam [facility] [place] Comment on above: Annual exam Start: 11-01-2025 Annual PCP Team Chronic Disease Visit Annual PCP Team Chronic Disease Visit [facility] Start: 11-01-2025 Anxiety Screening Anxiety Screening [facility] Start: 11-01-2025 Covid-19 Vaccine ( season) Covid-19 Vaccine ( season) [facility] Comment on above: Postponed from 01/17/2024 (Declined at t his time) Start: 11-01-2025 Depression Screening Depression Screening [facility] Start: 01-16-2025 Influenza vaccination [facility] Start: 01-03-2025 End: 01-03-2025 Patient encounter procedure 01/03/2025 6:40 PM EDT Office Visit [facility] [place] [address] [place], [place] [phone] Kadie Zaman MD [address] [place], [place] [phone] medication refill [facility] Comment on above: medication refill Start: 11-01-2024 Annual PCP Team Chronic Disease Visit Annual PCP Team Chronic Disease Visit [facility] Start: 11-01-2024 Anxiety Screening Anxiety Screening [facility] Start: 11-01-2024 End: 01-31-2025 Comprehensive metabolic 2000 panel - Serum or Plasma COMPREHENSIVE METABOLIC PANEL Lab Routine Microscopic hematuria Expected: 11/01/2024, Expires: 01/31/2025 [facility] Comment on above: Expected: 11/01/2024, Expires: Start: 11-01-2024 Covid-19 Vaccine () Covid-19 Vaccine () [facility] Comment on above: Postponed from 01/16/2023 (Declined at t his time) Start: 11-01-2024 Depression Screening Depression Screening [facility] Start: 11-01-2024 End: 01-31-2025 Urinalysis complete panel - Urine URINALYSIS (WITH MICROSCOPIC) WITH CULTURE IF INDICATED Lab Routine Microscopic hematuria Expected: 11/01/2024, Expires: 01/31/2025 [facility] Work Phone: Comment on above: Expected: 11/01/2024, Expires: Start: 11-01-2024 End: 11-01-2024 Patient encounter procedure 11/01/2024 9:20 AM EDT Office Visit Internal Medicine [address] [phone] Abbie Leo APRN.BATCH TANK CONTROLLER [address] [place], [place] [phone] Wellness Physical [facility] [place] Comment on above: Wellness Physical Start: 06-24-2024 Annual PCP Team Chronic Disease Visit Annual PCP Team Chronic Disease Visit [facility] Start: 01-17-2024 Covid-19 Vaccine () Covid-19 Vaccine () [facility] Start: 01-17-2024 Influenza vaccination [facility] Start: 11-02-2023 End: 02-01-2024 Comprehensive metabolic 2000 panel - Serum or Plasma [facility] Comment on above: Expected: 11/02/2023, Expires: Start: 11-02-2023 End: 02-01-2024 LIPID PANEL, NONFASTING [facility] Work Phone: Comment on above: Expected: 11/02/2023, Expires: 4 Start: 11-02-2023 End: 11-02-2023 Patient encounter procedure 11/02/2023 9:20 AM EDT Office Visit [facility] [place] [address] [place], [place] [phone] Abbie Leo APRN.BATCH TANK CONTROLLER [address] [place], [place] [phone] physical [facility] [place] Comment on above: physical Start: 09-20-2023 ANNUAL PCP TEAM CHRONIC DISEASE VISIT ANNUAL PCP TEAM CHRONIC DISEASE VISIT [facility] Start: 09-20-2023 COVID-19 VACCINE (#1) COVID-19 VACCINE (#1) [facility] Comment on above: Postponed from 06/25/1997 (Declined at t his time) Start: 06-23-2023 End: 09-22-2023 MYCOPLASMA GENITALIUM NAAT [facility] Work Phone: Comment on above: Expected: 06/23/2023, Expires: 4 Start: 05-18-2023 Behavioral Health Screening Behavioral Health Screening [facility] Start: 05-18-2023 Depression Assessment Depression Assessment [facility] Start: 01-16-2023 Covid-19 Vaccine () Covid-19 Vaccine () [facility] Start: 01-16-2023 Influenza vaccination [facility] Start: 09-19-2022 End: 11-19-2022 Urinalysis complete panel - Urine URINALYSIS, WITH MICROSCOPIC Lab Routine Routine medical exam History of glomerulonephritis Asymptomatic microscopic hematuria Expected: 09/19/2022, Expires: 11/19/2022 [facility] Work Phone: Comment on above: Expected: 09/19/2022, Expires: 3 Start: 09-14-2022 Adult depression screening assessment DEPRESSION SCREENING [facility] Start: 09-14-2022 ANNUAL PCP TEAM CHRONIC DISEASE VISIT ANNUAL PCP TEAM CHRONIC DISEASE VISIT [facility] Start: 09-14-2022 COVID-19 VACCINE (1) COVID-19 VACCINE (1) [facility] Comment on above: Postponed from 2001 (Declined at t his time) Start: 09-14-2022 HEPATITIS C SCREENING HEPATITIS C SCREENING [facility] Comment on above: Postponed from 2014 (Declined at t his time) Start: 09-14-2022 HIV SCREENING HIV SCREENING [facility] Comment on above: Postponed from 2014 (Declined at t his time) Start: 09-14-2022 MENINGOCOCCAL B: Consider based on risk (1 of 2 - Risk Bexsero 2-dose series) MENINGOCOCCAL B: Consider based on risk (1 of 2 - Risk Bexsero 2-dose series) [facility] Comment on above: Postponed from 2006 (Declined at t his time) Start: 09-14-2022 ONE PNEUMOVAX PRIOR TO AGE 65 ONE PNEUMOVAX PRIOR TO AGE 65 [facility] Comment on above: Postponed from 12/24/2015 (Declined at t his time) Start: 06-11-2022 Urine microalbumin profile DTAP,TDAP,TD (7 - Td or Tdap) [facility] Start: 01-16-2022 Influenza vaccination INFLUENZA (Season Ended) [facility] Start: 2014 HEPATITIS C SCREENING HEPATITIS C SCREENING [facility] Start: 2014 Hepatitis C screening Hepatitis C Screening [facility] Start: 2014 HIV SCREENING HIV SCREENING [facility] Start: 2014 HIV screening HIV Screening [facility] Start: 2014 SPIROMETRY SPIROMETRY [facility] Start: 2010 PEDS TO ADULT TRANSITION ANNUAL ASSESSMENT PEDS TO ADULT TRANSITION ANNUAL ASSESSMENT [facility] Start: 2008 PEDS TO ADULT TRANSITION INITIAL DISCUSSION PEDS TO ADULT TRANSITION INITIAL DISCUSSION [facility] End: 11-01-2025 Echocardiography ECHO Cardiology Routine Family history of cardiomyopathy Abnormal echocardiogram Murmur 1 Occurrences starting 11/01/2024 until 11/01/2025 [facility] Comment on above: 1 Occurrences starting 11/01/2024 until 11/01/2025 Mycoplasma sp identi fied in Unspecified specimen by Organism specific culture MYCOPLASMA CULT Microbiology Routine Disease caused by mycoplasma Ordered: 06/26/2023 [facility] Work Phone: Comment on above: Ordered: 06/26/2023 End: 10-19-2023 SPIROMETRY - BASELINE AND POST DILATOR SPIROMETRY - BASELINE AND POST DILATOR PFT Routine Mild intermittent asthma without complication 1 Occurrences starting 09/19/2022 until 10/19/2023 [facility] Work Phone: Comment on above: 1 Occurrences starting 09/19/2022 until 10/19/2023 End: 10-14-2022 SPIROMETRY WITH DILATOR IF OBSTRUCTED SPIROMETRY WITH DILATOR IF OBSTRUCTED PFT Routine Mild intermittent asthma without complication 1 Occurrences starting 09/14/2021 until 10/14/2022 [facility] Work Phone: Comment on above: 1 Occurrences starting 09/14/2021 until 10/14/2022 End: 07-23-2024 US KIDNEY/BLADDER US KIDNEY/BLADDER Radiology Routine Other microscopic hematuria 1 Occurrences starting 06/24/2023 until 07/23/2024 [facility] Work Phone: Comment on above: 1 Occurrences starting 06/24/2023 until 07/23/2024 [facility] Immunizations Immunization Date Immunization Notes Care Provider [facility] 09-19-2022 pneumococcal Conjuga te, unspecified formulation Kadie Zaman MD Work Phone: [facility] Work Phone: 09-19-2022 pneumococcal (PCV20) vaccine, 20 valent (PREVNAR 20) Kadie Zaman MD Work Phone: [facility] 09-19-2022 tetanus toxoid, redu agustín diphtheria toxoid, and acellular pertussis vaccine, adsorbed Kadie Zaman MD Work Phone: [facility] 08-31-2015 meningococcal polysaccharide (groups A, C, Y and W-135) diphtheria toxoid conjugate vaccine (MCV4P) Kadie Zaman MD Work Phone: [facility] 06-11-2012 influenza virus vacc ine, unspecified formulation Kadie Zaman MD Work Phone: [facility] 06-11-2012 tetanus toxoid, redu agustín diphtheria toxoid, and acellular pertussis vaccine, adsorbed Kadie Zaman MD Work Phone: [facility] 02-03-2011 human papilloma viru s vaccine, quadrivalent Kadie Zaman MD Work Phone: [facility] 02-03-2011 influenza virus vacc ine, live, attenuated, for intranasal use Kadie Zaman MD Work Phone: [facility] 06-10-2010 human papilloma viru s vaccine, quadrivalent Kadie Zaman MD Work Phone: [facility] 03-23-2010 human papilloma viru s vaccine, westonivalent Kadie Zaman MD Work Phone: [facility] 03-23-2010 influenza virus vacc ine, live, attenuated, for intranasal use Kadie Zaman MD Work Phone: [facility] 04-19-2009 influenza virus vacc ine, live, attenuated, for intranasal use Kadie Zaman MD Work Phone: [facility] 04-19-2009 varicella virus vaccine Kadie Zaman MD Work Phone: [facility] 12-27-2007 hepatitis A vaccine, pediatric/adolescent dosage, 2 dose schedule Kadie Zaman MD Work Phone: [facility] Work Phone: 12-27-2007 hepatitis A vaccine, unspecified formulation Kadie Zaman MD Work Phone: [facility] 12-27-2007 meningococcal polysaccharide (groups A, C, Y and W-135) diphtheria toxoid conjugate vaccine (MCV4P) Kadie Zaman MD Work Phone: [facility] Work Phone: 12-27-2007 Meningococcal, MCV4, unspecified conjugate formulation(groups A, C, Y and W-135) Kadie Zaman MD Work Phone: [facility] 12-22-2006 hepatitis A vaccine, pediatric/adolescent dosage, 2 dose schedule Kadie Zaman MD Work Phone: [facility] Work Phone: 12-22-2006 hepatitis A vaccine, unspecified formulation Kadie Zaman MD Work Phone: [facility] 12-22-2006 tetanus and diphther ia toxoids, adsorbed, preservative free, for adult use (2 Lf of tetanus toxoid and 2 Lf of diphtheria toxoid) Kadie Zaman MD Work Phone: [facility] 12-22-2006 tetanus toxoid, adsorbed Yaquelin Zaman MD Work Phone: [facility] Work Phone: 12-28-2001 diphtheria, tetanus toxoids and acellular pertussis vaccine Kadie Zaman MD Work Phone: [facility] 12-28-2001 diphtheria, tetanus toxoids and acellular pertussis vaccine, unspecified formulation Kadie Zaman MD Work Phone: [facility] Work Phone: 12-28-2001 measles, mumps and rubella virus vaccine Kadie Zaman MD Work Phone: [facility] 12-28-2001 poliovirus vaccine, inactivated Kadie Zaman MD Work Phone: [facility] 07-20-1998 diphtheria, tetanus toxoids and acellular pertussis vaccine Kadie Zaman MD Work Phone: [facility] 07-20-1998 haemophilus influenz ae type b vaccine, HbOC conjugate Kadie Zaman MD Work Phone: [facility] 01-17-1998 measles, mumps and rubella virus vaccine Kadie Zaman MD Work Phone: [facility] 01-17-1998 poliovirus vaccine, inactivated Kadie Zaman MD Work Phone: [facility] 01-17-1998 varicella virus vaccine Kadie Zaman MD Work Phone: [facility] 07-27-1997 diphtheria, tetanus toxoids and acellular pertussis vaccine Kadie Zaman MD Work Phone: [facility] 07-27-1997 haemophilus influenz ae type b vaccine, HbOC conjugate Kadie Zaman MD Work Phone: [facility] 07-25-1997 hepatitis B vaccine, pediatric or pediatric/adolescent dosage Kadie Zaman MD Work Phone: [facility] 05-22-1997 diphtheria, tetanus toxoids and acellular pertussis vaccine Kadie Zaman MD Work Phone: [facility] 05-22-1997 haemophilus influenz ae type b vaccine, HbOC conjugate Kadie Zaman MD Work Phone: [facility] 05-22-1997 hepatitis B vaccine, pediatric or pediatric/adolescent dosage Kadie Zaman MD Work Phone: [facility] 05-22-1997 poliovirus vaccine, inactivated Kadie Zaman MD Work Phone: [facility] 02-16-1997 diphtheria, tetanus toxoids and acellular pertussis vaccine Kadie Zaman MD Work Phone: [facility] 02-16-1997 haemophilus influenz ae type b vaccine, HbOC conjugate Kadie Zaman MD Work Phone: [facility] 02-16-1997 hepatitis B vaccine, pediatric or pediatric/adolescent dosage Kadie Zaman MD Work Phone: [facility] 02-16-1997 poliovirus vaccine, inactivated Kadie Zaman MD Work Phone: [facility] Payers Date Payer Category Payer Private Health Insurance [employer] [id number] 2023 Unknown [id number] 2019 Unknown [employer]I [employer] PPO [id number] 2019-Present [phone] [address] [place] [address] PPO [id number] 2019 Unknown [id number] 2017 Unknown [id number] Social History Date Type Detail Facility Start: 01-22-2011 End: 02-13-2023 Tobacco smoking status ALIS Light tobacco smoker [facility] Work Phone: History of tobacco use Cigarette Smoker [facility] Work Phone: Start: 01-22-2011 End: 09-19-2022 Cigarettes smoked current (pack per day) - Reported 0.1 [facility] Work Phone: Start: 01-22-2011 End: 11-01-2024 Tobacco use and exposure Smokeless tobacco non-user [facility] Work Phone: Start: 09-14-2021 End: 11-01-2024 Alcohol intake Current non-drinker of alcohol (finding) [facility] Start: 09-14-2021 End: 02-13-2023 Tobacco Comment Not vaping now [facility] Start: 1996 Sex Assigned At Male [facility] Work Phone: Start: 09-04-2021 End: 09-14-2021 Exposure to SARS-CoV-2 (event) Not sure [facility] Start: 09-19-2022 End: 06-23-2023 Tobacco use panel [facility] Work Phone: Start: 04-18-2012 Adult Depression Screening Assessment 0 [facility] Work Phone: Start: 08-20-2021 Gender identity Identifies as male gender (finding) [facility] Work Phone: Start: 01-04-2021 Sexual orientation Heterosexual (rom carr) [facility] Work Phone: Start: 11-02-2023 End: 11-01-2024 Tobacco smoking status NHIS Ex-smoker [facility] Work Phone: History of tobacco use Current smoker [facility] Has the [employer], or [employer] threatened to shut off services in your home in past 12Mo No [facility] Are you now , , , , never or living with a partner? [facility] How often to you hav e a drink containing alcohol? Never [facility] How hard is it for y ou to pay for the very basics like food, housing, medical care, and heating Not very hard [facility] Do you feel stress - tense, restless, nervous, or anxious, or unable to sleep at night because your mind is troubled all the time - these days [OSQ] To some extent [facility] (I/We) worried srini er (my/our) food would run out before (I/we) got money to buy more. Never true [facility] In the past 12 month s, was there a time when you were not able to pay the mortgage or rent on time? Yes [facility] Functional Status Date Assessment Result Facility 08-28-2014 Are you deaf, or do you have serious difficulty hearing No 08/28/2014 12:49 PM EDT Michelle Causey Cma No [facility] 08-28-2014 Are you blind, or do you have serious difficulty seeing, even when wearing glasses No 08/28/2014 12:49 PM EDT Michelle Causey Cma No [facility] 08-28-2014 Do you have serious difficulty walking or climbing stairs No 08/28/2014 12:49 PM EDT Michelle Causey Cma No [facility] 08-28-2014 Do you have difficul ty dressing or bathing No 08/28/2014 12:49 PM EDT Michelle Causey Cma No [facility] 08-28-2014 Because of a physica l, mental, or emotional condition, do you have difficulty doing errands alone such as visiting a physician's office or shopping No 08/28/2014 12:49 PM EDT Michelle Causey Cma No [facility] Mental Status Date Assessment Result Facility 08-28-2014 Because of a physica l, mental, or emotional condition, do you have serious difficulty concentrating, remembering, or making decisions No 08/28/2014 12:49 PM EDT Michelle Causey Cma No [facility] Clinical Notes 08-17-2012 to 12-26-2024 Result Encounter Note - Emily Hill APRN.CNS - 12/26/2024 3:50 PM EDTResult Encounter Note - Emily Hill APRN.CNS - 12/26/2024 3:50 PM EDTPatient InstructionsPatient Instructions Note Date & Type Note Facility 12-26-2024 Progress note Formatting of t his note might be different from the original. 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 - Have a urinalysis and blood tests for kidney function done at our lab within the next 1-2 weeks; no fasting required--just sign in at the lab during regular hours (half-day Saturdays available). - Schedule a heart ultrasound (echocardiogram) sometime this year to monitor your heart murmur; call the cardiology department or our office to arrange the appointment. - Continue using your [id number] allergy medicines (Flonase and Claritin) as needed to control nasal and eye symptoms. - If you need muscle relaxer or ibuprofen refills in the future, send a request through [employer] (allow 3-5 days for processing) or call the office for same-day service. documented in this encounter [facility] 11-01-2024 History of Present illness Narrative Subjective Patient ID: Rafy is a 28 year old male who presents for Physical. HPI Rafy Hong is a 28-year-old male with a history of asthma, presenting for an annual wellness visit, with additional concerns of back pain, hematuria, and a heart murmur. Annual Wellness Exam: - No significant issues since last visit. - Adheres to a healthy diet and remains physically active. - Denies anxiety or depression. - Declines a COVID booster. - No current use of muscle relaxers or ibuprofen for back pain. Asthma: - Denies current symptoms; has not used an inhaler recently. - Reports outgrowing most symptoms since childhood. - Previously required daily inhaler and breathing treatments. - Denies recent dyspnea. - Reports seasonal allergies, but no significant symptoms this year. - Uses Flonase and Claritin PRN. Back Pain: - Intermittent back pain, exacerbated by bending and lifting. - No need for refills of muscle relaxers or ibuprofen. Hematuria: - History of persistent microscopic hematuria. - Evaluated by a pediatric kidney specialist in [place] before age 19-2012. - Recent ultrasound at [place] to assess bladder emptying; no recent specialist visits. -US kidney last year, did not see urology or nephrology. Heart Murmur: - History of heart murmur monitored by cardiology during childhood. - No recent follow-up. - Denies chest pain, palpitations, or dyspnea. - Reports occasional dizziness with positional changes, resolving within seconds to minutes. - No limitations on walking or climbing stairs. - Echo 2013, painting instructor. Family History: - Rafy's mother has stage 3 heart failure. ROS Eyes: (-) itchy eyes Ears/Nose/Mouth/Throat: (-) rhinorrhea Cardiovascular: (-) chest pain, (-) palpitations, (-) exercise intolerance Respiratory: (-) shortness of breath, (-) wheezing Musculoskeletal: (+) intermittent musculoskeletal pain Neurological: (+) dizziness Objective BP 114/68 Pulse 63 Resp 16 Ht 186 cm (6' 1.23) Wt 83.7 kg (184 lb 8.4 oz) BMI 24.19 kg/m Physical Exam Vitals and nursing note reviewed. Constitutional: Appearance: Normal appearance. HENT: Head: Normocephalic and atraumatic. Eyes: Conjunctiva/sclera: Conjunctivae normal. Neck: Thyroid: No thyroid mass or thyromegaly. Vascular: Normal carotid pulses. No carotid bruit or JVD. Cardiovascular: Rate and Rhythm: Normal rate and regular rhythm. Pulses: Carotid pulses are 2+ on the right side and 2+ on the left side. Radial pulses are 2+ on the right side and 2+ on the left side. Heart sounds: Normal heart sounds. Pulmonary: Effort: Pulmonary effort is normal. Breath sounds: Normal breath sounds. Abdominal: General: Bowel sounds are normal. Palpations: Abdomen is soft. Musculoskeletal: Right lower leg: No edema. Left lower leg: No edema. Skin: General: Skin is warm and dry. Neurological: General: No focal deficit present. Mental Status: He is alert and oriented to person, place, and time. Latest Ref [facility] 11/02/2023 Protein, Total 6.3 - 8.0 g/dL 7.0 Albumin 3.9 - 4.9 g/dL 4.6 Calcium 8.5 - 10.2 mg/dL 9.7 Bilirubin, Total 0.2 - 1.3 mg/dL 0.4 Alkaline Phosphatase 38 - 113 U/L 46 AST 14 - 40 U/L 18 ALT 10 - 54 U/L 10 Glucose 74 - 99 mg/dL 93 BUN 9 - 24 mg/dL 21 Creatinine 0.73 - 1.22 mg/dL 0.98 Sodium 136 - 144 mmol/L 139 Potassium 3.7 - 5.1 mmol/L 4.4 Chloride 98 - 107 mmol/L 104 CO2 22 - 30 mmol/L 26 Anion Gap 8 - 15 mmol/L 9 eGFR >=60 mL/min/1.73m 109 Total Cholesterol, Nonfasting <200 mg/dL 171 Triglycerides, Nonfasting <150 mg/dL 43 HDL Cholesterol, Nonfasting >39 mg/dL 62 LDL Cholesterol Calculated, Nonfasting <100 mg/dL 100 (H) Non HDL Cholesterol, Nonfasting <130 mg/dL 109 VLDL Cholesterol, Nonfasting <30 mg/dL 9 Total Chol/HDL Ratio, Nonfasting <5.10 mg/dL 2.76 LDL/HDL Ratio, Nonfasting <2.54 mg/dL 1.61 1. Wellness examination (Z00.00) - Conducted a comprehensive wellness examination. - Vital signs including blood pressure and heart rate are within normal limits. - Patient is maintaining a healthy diet and staying active. - No significant issues reported since the last visit. -US kidney 2023 unremarkable. 2. Screening for depression (Z13.31) 3. Encounter for screening examination for other mental health and behavioral disorders (Z13.39) - Screened for anxiety and depression; no concerns reported. 4. Encounter for immunization (Z23) - Discussed COVID booster; no decision made. 5. Microscopic hematuria (R31.29) 6. 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 - Recent urinalysis showed microscopic hematuria. - Ordered repeat urinalysis and blood work to assess kidney function. - Discussed referral to nephrology for further evaluation. 7. Wheezing (R06.2) 8. History of asthma (Z87.09) 9. Mild intermittent asthma without complication (HCC) (J45.20) - Asthma history, currently not experiencing symptoms. - Previous inhaler prescription is outdated; ordered a new inhaler to be available at [facility] in [place]. - Discussed the importance of having an inhaler on hand. - Allergies well-controlled with intermittent use of Flonase and Claritin. 10. Family history of cardiomyopathy (Z82.49) - Family history of cardiomyopathy; mother is in stage 3 heart failure. - Discussed the importance of monitoring cardiac health. 11. Abnormal echocardiogram (R93.1) 12. Murmur (R01.1) - History of heart murmur and abnormal echocardiogram findings. - No current symptoms of chest pain, shortness of breath, palpitations, or dizziness. - Ordered echocardiogram to be completed this year to assess cardiac function. Emily Hill APRN.CNS documented in this encounter [facility] 11-01-2024 Note HNO ID: [id number] Author: EMILY HILL APRN.CNS Service: ? Author Type: Nurse Specialist Type: Progress Notes Filed: 11/01/2024 15:00 Note Text: Subjective Patient ID: Rafy is a 28 year old male who presents for Physical. HPI Rafy Hong is a 28-year-old male with a history of asthma, presenting for an annual wellness visit, with additional concerns of back pain, hematuria, and a heart murmur. Annual Wellness Exam: - No significant issues since last visit. - Adheres to a healthy diet and remains physically active. - Denies anxiety or depression. - Declines a COVID booster. - No current use of muscle relaxers or ibuprofen for back pain. Asthma: - Denies current symptoms; has not used an inhaler recently. - Reports outgrowing most symptoms since childhood. - Previously required daily inhaler and breathing treatments. - Denies recent dyspnea. - Reports seasonal allergies, but no significant symptoms this year. - Uses Flonase and Claritin PRN. Back Pain: - Intermittent back pain, exacerbated by bending and lifting. - No need for refills of muscle relaxers or ibuprofen. Hematuria: - History of persistent microscopic hematuria. - Evaluated by a pediatric kidney specialist in [place] before age 19-2012. - Recent ultrasound at [place] to assess bladder emptying; no recent specialist visits. -US kidney last year, did not see urology or nephrology. Heart Murmur: - History of heart murmur monitored by cardiology during childhood. - No recent follow-up. - Denies chest pain, palpitations, or dyspnea. - Reports occasional dizziness with positional changes, resolving within seconds to minutes. - No limitations on walking or climbing stairs. - Echo 2013, painting instructor. Family History: - Rafy's mother has stage 3 heart failure. ROS Eyes: (-) itchy eyes Ears/Nose/Mouth/Throat: (-) rhinorrhea Cardiovascular: (-) chest pain, (-) palpitations, (-) exercise intolerance Respiratory: (-) shortness of breath, (-) wheezing Musculoskeletal: (+) intermittent musculoskeletal pain Neurological: (+) dizziness Objective BP 114/68 Pulse 63 Resp 16 Ht 186 cm (6' 1.23) Wt 83.7 kg (184 lb 8.4 oz) BMI 24.19 kg/m? Physical Exam Vitals and nursing note reviewed. Constitutional: Appearance: Normal appearance. HENT: Head: Normocephalic and atraumatic. Eyes: Conjunctiva/sclera: Conjunctivae normal. Neck: Thyroid: No thyroid mass or thyromegaly. Vascular: Normal carotid pulses. No carotid bruit or JVD. Cardiovascular: Rate and Rhythm: Normal rate and regular rhythm. Pulses: Carotid pulses are 2+ on the right side and 2+ on the left side. Radial pulses are 2+ on the right side and 2+ on the left side. Heart sounds: Normal heart sounds. Pulmonary: Effort: Pulmonary effort is normal. Breath sounds: Normal breath sounds. Abdominal: General: Bowel sounds are normal. Palpations: Abdomen is soft. Musculoskeletal: Right lower leg: No edema. Left lower leg: No edema. Skin: General: Skin is warm and dry. Neurological: General: No focal deficit present. Mental Status: He is alert and oriented to person, place, and time. Latest Ref Rn 11/02/2023 Protein, Total 6.3 - 8.0 g/dL 7.0 Albumin 3.9 - 4.9 g/dL 4.6 Calcium 8.5 - 10.2 mg/dL 9.7 Bilirubin, Total 0.2 - 1.3 mg/dL 0.4 Alkaline Phosphatase 38 - 113 U/L 46 AST 14 - 40 U/L 18 ALT 10 - 54 U/L 10 Glucose 74 - 99 mg/dL 93 BUN 9 - 24 mg/dL 21 Creatinine 0.73 - 1.22 mg/dL 0.98 Sodium 136 - 144 mmol/L 139 Potassium 3.7 - 5.1 mmol/L 4.4 Chloride 98 - 107 mmol/L 104 CO2 22 - 30 mmol/L 26 Anion Gap 8 - 15 mmol/L 9 eGFR >=60 mL/min/1.73m? 109 Total Cholesterol, Nonfasting <200 mg/dL 171 Triglycerides, Nonfasting <150 mg/dL 43 HDL Cholesterol, Nonfasting >39 mg/dL 62 LDL Cholesterol Calculated, Nonfasting <100 mg/dL 100 (H) Non HDL Cholesterol, Nonfasting <130 mg/dL 109 VLDL Cholesterol, Nonfasting <30 mg/dL 9 Total Chol/HDL Ratio, Nonfasting <5.10 mg/dL 2.76 LDL/HDL Ratio, Nonfasting <2.54 mg/dL 1.61 1. Wellness examination (Z00.00) - Conducted a comprehensive wellness examination. - Vital signs including blood pressure and heart rate are within normal limits. - Patient is maintaining a healthy diet and staying active. - No significant issues reported since the last visit. -US kidney 2023 unremarkable. 2. Screening for depression (Z13.31) 3. Encounter for screening examination for other mental health and behavioral disorders (Z13.39) - Screened for anxiety and depression; no concerns reported. 4. Encounter for immunization (Z23) - Discussed COVID booster; no decision made. 5. Microscopic hematuria (R31.29) 6. 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 - Recent urinalysis showed microscopic hematuria. - Ordered repeat urinalysis and bloo (more content not included)... [facility] 11-02-2023 History of Present illness Narrative CHIEF COMPLAINT: Patient presents with: Physical: yearly exam HISTORY: Rafy Hong is a 27 year old male who presents 11/02/2023 for his Yearly Physical Exam. They are here today for a wellness exam. Generally feels well and does not have complaints. Is able to complete ADL's with independence. Here for routine visit. Off and on past 6 months gets some rib pain. No prior injury to this area. No issues with shortness of breath or chest tightness. Hurts to bend over or lift anything heavy. Not sure how to describe the discomfort but on going over the last year or so but worse the last 6 months. Tried massage, icyhot, not helping. Sleeps on left side. Started stretching some. Work involves moving heavy parts around. Otherwise doing okay. Other Providers: None, recommended follow up with speciality provider for microscopic hematuria but did not follow up Depression Screen Q1: Over the past two weeks, have you felt down, depressed or hopeless? No Q2: Over the past two weeks, have you felt little interest or pleasure in doing things? No Behavioral Health Screening PHQ-2 Score: 0 (Lower risk for depression) BECKIE-2 Score: 0 (Lower risk for anxiety) Recommendation: no further intervention at this time Current exercise habits: active Dietary habits: tries to eat healthy Hearing difficulties: no Safe in current home environment: Yes Tobacco: nicotine, vapes ETOH: no Family History Cancer Colon: no Prostate: no Past Medical History: PAST MEDICAL HISTORY Diagnosis Date ADHD (attention deficit hyperactivity disorder) was having high blood pressure when taking vyvanse Anemia Asthma no problems since age 8 years Bacterial meningitis 2007 21 days of abx Family history of cardiomyopathy 07/08/2012 Glomerulonephritis 2007 Heart murmur followed by cardiology Hematuria 2007 was followed by [facility]. Hematuria 07/08/2012 History of glomerulonephritis 07/08/2012 Hypertension 07/08/2012 Family Medical History: FAMILY HISTORY Problem Relation Age of Onset Heart Mother dilated cardiomyopathy (presumed viral cause), stage three heart failure Heart Maternal Grandmother Heart Other mggm dilated cardiomyopathy Coronary Artery Disease Father Coronary Artery Disease Paternal Grandmother None Sister Hypertension Father Social History: Social History Tobacco Use Smoking status: Former Packs/day: .1 Types: Cigarettes Smokeless tobacco: Never Tobacco comments: Not vaping now Vaping Use Vaping Use: current everyday user Substances: Nicotine, THC Devices: VantageILM Substance Use Topics Alcohol use: No Drug use: Yes Frequency: 1.0 times per week Types: Marijuana Comment: Daily use Allergies: ALLERGIES No Active Allergies Medications: Current Outpatient Medications Medication Sig cyclobenzaprine (FLEXERIL) 10 mg tablet Take 1 tablet by mouth three times a day as needed for pain. ibuprofen (MOTRIN) 600 mg tablet Take 1 tablet by mouth every 8 hours as needed for pain. loratadine (CLARITIN) 10 mg tablet Take 1 tablet by mouth once daily. albuterol HFA (PROVENTIL HFA, VENTOLIN HFA) 90 mcg/actuation inhaler Inhale 2 Puffs as instructed every 6 hours as needed for wheezing/shortness of breath. (JACKIE for Ventolin with dose counter) fluticasone (FLONASE) 50 mcg/actuation nasal spray Use 2 Sprays in each nostril once daily. Rinse mouth after use. No current facility-administered medications for this visit. Chronic Problem List: ACTIVE PROBLEM LIST History of Hematuria As A Child - 02/27/2015 Orthostatic Proteinuria - 07/12/2012 Family History of Cardiomyopathy - 07/08/2012 History of Glomerulonephritis - 07/08/2012 Hematuria - 07/08/2012 Asthma - 07/07/2012 Adhd (Attention Deficit Hyperactivity Disorder) Comment: was having high blood pressure when taking vyvanse Heart Murmur Review of Systems Review of Systems Constitutional: Negative. Respiratory: Negative. Cardiovascular: Negative. OBJECTIVE BP 136/62 Pulse 76 Resp 12 Ht 6' 3 (1.91m) Wt 194 lb (88.0kg) SpO2 100% BMI 24.25 kg/(m^2). Physical Exam Vitals and nursing note reviewed. Constitutional: General: He is awake. He is not in acute distress. Appearance: Normal appearance. He is well-developed and well-groomed. He is not ill-appearing, toxic-appearing or diaphoretic. HENT: Head: Normocephalic. Right Ear: External ear normal. Left Ear: External ear normal. Nose: Nose normal. Eyes: General: Vision grossly intact. Conjunctiva/sclera: Conjunctivae normal. Pupils: Pupils are equal, round, and reactive to light. Neck: Vascular: No JVD. Trachea: Trachea normal. Cardiovascular: Rate and Rhythm: Normal rate and regular rhythm. Pulses: Normal pulses. Heart sounds: Normal heart sounds. No murmur heard. Pulmonary: Effort: Pulmonary effort is normal. No accessory muscle usage, prolonged expiration or respiratory distress. Breath sounds: Normal breath sounds. Musculoskeletal: Cervical back: Neck supple. Skin: General: Skin is warm and dry. Capillary Refill: Capillary refill takes less than 2 seconds. Neurological: General: No focal deficit present. Mental Status: He is alert and oriented to person, place, and time. Mental status is at baseline. Psychiatric: Attention and Perception: Attention and perception normal. Mood and Affect: Mood and affect normal. Speech: Speech normal. Behavior: Behavior normal. Behavior is cooperative. Thought Content: Thought content normal. Cognition and Memory: Cognition and memory normal. Judgment: Judgment normal. ASSESSMENT/PLAN: 1. Wellness examination - ICD9: V70.0, ICD10: Z00.00 (primary diagnosis) - Counseled on healthy diet and regular exercise - Follow up for annual exam in one year - BEHAVIORAL HEALTH SCREENING 2. Muscle pain - ICD9: 729.1, ICD10: M79.10 His rib pain is localized and seems more muscle related, trial muscle relaxer, PT if not improving. - CYCLOBENZAPRINE 10 MG TABLET 3. Other microscopic hematuria - ICD9: 599.72, ICD10: R31.29 Recommended follow up urology and nephrology. 4. Encounter for therapeutic drug monitoring - ICD9: V58.83, ICD10: Z51.81 - COMPREHENSIVE METABOLIC PANEL 5. Screening for lipid disorders - ICD9: V77.91, ICD10: Z13.220 - LIPID PANEL, NONFASTING 6. Encounter for screening for diabetes mellitus - ICD9: V77.1, ICD10: Z13.1 - COMPREHENSIVE METABOLIC PANEL Wellness exam completed. Health maintenance reviewed and updated. Chronic conditions and medications reviewed and updated as needed. Encouraged regular physical activity as tolerated, Healthy diet, and health promoting lifestyle. Encouraged regular eye doctor and dental visits. Portions of this note have been entered by ancillary staff. I have reviewed and when necessary edited, so that they are an adequate record of my encounter with this patient Please note that parts of this document were created using [employer] and therefore may contain grammatical errors. Patient verbalizes understanding of instructions from today's visit and in agreement with treatment plan. Questions answered. Agrees to call the office if questions, concerns or issues with acute symptoms not improving or if they worsen. See diagnoses and orders for additional plan(s). Allergies and medications were reviewed, list was updated, and refills given if needed. Past medical, surgical, social, and family history reviewed and updated as appropriate. Encouraged proper diet & exercise as well as compliance with taking medications. Age-appropriate health preventative measures were discussed.. Return in about 1 year (around 11/01/2024) for Wellness physical.. Abbie Leo APRN-ZAINAB documented in this encounter [facility] 10-09-2023 Telephone encounter Note Message left on personal voicemail apologizing again for Provider running behind on 09/25/23 and patient having to leave. Phone number left for pt to call and reschedule OV. Hailey Argueta LPN [facility] 10-09-2023 Miscellaneous Notes Message left on personal voicemail apologizing again for Provider running behind on 09/25/23 and patient having to leave. Phone number left for pt to call and reschedule OV. Hailey Argueta LPN Left message for Patient to call & reschedule appt. Lisa Kilpatrick LPN Message left on voicemail for patient to call office and reschedule yearly. Had to leave without being seen, had waited over an hour. Hailey Argueta LPN documented in this encounter [facility] 09-29-2023 Telephone encounter Note Left message for Patient to call & reschedule appt. Lisa Kilpatrick LPN [facility] 09-25-2023 Telephone encounter Note Message left on voicemail for patient to call office and reschedule yearly. Had to leave without being seen, had waited over an hour. Hailey Argueta LPN [facility] 07-14-2023 Instructions Camila Kerr APRN.BATCH TANK CONTROLLER - 07/14/2023 12:56 PM EST ASSESSMENT/PLAN: 1. Rib pain on right side - ICD9: 786.50, ICD10: R07.81 - XR RIBS/CHEST 3V AP RIB/OBLS/CXR RIGHT FINDINGS: Normal cardiomediastinal silhouette. No focal consolidation. No discernible pleural effusion or pneumothorax. No acute displaced right rib fracture identified. IMPRESSION: No radiographic evidence of acute displaced right rib fracture. Field Agronomist: SHARON Transcribe Date/Time: Jul 14 2023 12:47P Dictated by : SHANAE DIAZ MD - suspect costochondritis - ibuprofen as prescribed. - Follow-up with your PCP in 3-5 days if symptoms have not improved or sooner if symptoms worsen - Discussed red flags and need for immediate medical evaluation if any occur. - Discussed supportive care treatment with fluids, rest and analgesia. - Discussed expected course of illness Camila Kerr APRN.ZAINAB COSTOCHONDRITIS DESCRIPTION: An inflammation of the cartilage of one or more ribs, most commonly the second or third ribs. The pain that results is often intensified by movements that change the position of the ribs, such as lying down, bending over, coughing or sneezing. Pain may mimic that of coronary artery disease. The disorder is more common in young adults but can occur in any age group. RISK INCREASES WITH: -Trauma, such as a severe blow to the chest. -Unusual physical activity. -Upper respiratory infection. PREVENTIVE MEASURES: Avoidance of activities that may strain or cause trauma to the rib cage. TREATMENT: -Rest -Heating pad or ice massage applied to the affected area. -Avoidance of sudden movements that will intensify the pain. MEDICATION: -Mild pain medications, such as aspirin, acetaminophen or ibuprofen may help relieve discomfort. -Stronger pain medicines may be prescribed. -Steroid injections may be prescribed. ACTIVITY: As tolerated. REPORT: New or unexplained symptoms develop. documented in this encounter [facility] 07-14-2023 History of Present illness Narrative Radiology Service Progress Note PATIENT NAME: Rafy Hong DATE OF SERVICE: July 14, 2023 TIME: 12:34 PM PATIENT IDENTITY VERIFICATION COMPLETED USING TWO (2) IDENTIFIERS: Name and Date of confirmed by patient verbally. FALL SCREENING: Has the patient had 2 falls in the last year or 1 fall with injury or currently using an Ambulatory Assistive Device (Walker, Cane, Wheelchair, Crutches, etc.)? No PATIENT GENDER DATA: Male PATIENT RELEVANT IMPLANT DATA REVIEWED: Yes PATIENT PRESENTS WITH AN IMPLANTABLE OR ATTACHED PHYSICIAN PRACTICE MANAGER: No RADIOLOGY DEPARTMENT: General X-ray: Exam(s) Completed: Rib X-Ray: Right PERIPHERAL IV DATA: Not applicable SIGNED BY: RT Dannie(Natalia) July 14, 2023 12:34 PM documented in this encounter [facility] 07-14-2023 History of Present illness Narrative Subjective HPI Rafy Hong is a 27 year old male who presents with right rib pain for the past 3 days. He denies injury States ribs hurt at rest and with movement; worse at movement Denies cough, congestion, sick symptoms States he does some heavy lifting at work. Review of Systems Constitutional: Negative for chills and fever. Respiratory: Negative for cough, hemoptysis, sputum production and shortness of breath. Cardiovascular: Positive for chest pain (right rib pain). Skin: Negative for itching and rash. BP 129/74 Pulse (!) 53 Temp 36.4 C (97.6 F) Resp 18 Wt 86.2 kg (190 lb) SpO2 99% BMI 23.75 kg/m PAST MEDICAL HISTORY Diagnosis Date ADHD (attention deficit hyperactivity disorder) was having high blood pressure when taking vyvanse Anemia Asthma no problems since age 8 years Bacterial meningitis 2006 21 days of abx Family history of cardiomyopathy 07/08/2012 Glomerulonephritis 2007 Heart murmur followed by cardiology Hematuria 2007 was followed by [facility]. Hematuria 07/08/2012 History of glomerulonephritis 07/08/2012 Hypertension 07/08/2012 PAST SURGICAL HISTORY Procedure Laterality Date CIRCUMCISION ALLERGIES Patient has no active allergies. MEDICATIONS loratadine (CLARITIN) 10 mg tablet Take 1 tablet by mouth once daily. albuterol HFA (PROVENTIL HFA, VENTOLIN HFA) 90 mcg/actuation inhaler Inhale 2 Puffs as instructed every 6 hours as needed for wheezing/shortness of breath. (JACKIE for Ventolin with dose counter) fluticasone (FLONASE) 50 mcg/actuation nasal spray Use 2 Sprays in each nostril once daily. Rinse mouth after use. ibuprofen (MOTRIN) 600 mg tablet Take 1 tablet by mouth every 8 hours as needed for pain. FAMILY HISTORY Problem Relation Age of Onset Heart Mother dilated cardiomyopathy (presumed viral cause), stage three heart failure Heart Maternal Grandmother Heart Other mggm dilated cardiomyopathy Coronary Artery Disease Father Coronary Artery Disease Paternal Grandmother None Sister Hypertension Father Social History Tobacco Use Smoking status: Light Smoker Packs/day: .1 Types: Cigarettes Smokeless tobacco: Never Tobacco comments: Not vaping now Vaping Use Vaping Use: current everyday user Substances: Nicotine Devices: Refillable tank Substance Use Topics Alcohol use: No Drug use: Yes Frequency: 1.0 times per week Types: Marijuana Comment: Daily use Objective Physical Exam Vitals and nursing note reviewed. Constitutional: Appearance: Normal appearance. Cardiovascular: Rate and Rhythm: Normal rate and regular rhythm. Heart sounds: Normal heart sounds. Pulmonary: Effort: Pulmonary effort is normal. No respiratory distress. Breath sounds: Normal breath sounds. No wheezing or rales. Musculoskeletal: General: Tenderness (right rib tenderness) present. No signs of injury. Skin: General: Skin is warm and dry. Findings: No erythema or rash. Neurological: Mental Status: He is alert. ASSESSMENT/PLAN: 1. Rib pain on right side - ICD9: 786.50, ICD10: R07.81 - XR RIBS/CHEST 3V AP RIB/OBLS/CXR RIGHT FINDINGS: Normal cardiomediastinal silhouette. No focal consolidation. No discernible pleural effusion or pneumothorax. No acute displaced right rib fracture identified. IMPRESSION: No radiographic evidence of acute displaced right rib fracture. Field Agronomist: SHARON Transcribe Date/Time: Jul 14 2023 12:47P Dictated by : SHANAE DIAZ MD - suspect costochondritis - ibuprofen as prescribed. - Follow-up with your PCP in 3-5 days if symptoms have not improved or sooner if symptoms worsen - Discussed red flags and need for immediate medical evaluation if any occur. - Discussed supportive care treatment with fluids, rest and analgesia. - Discussed expected course of illness Camila Kerr APRN.BATCH TANK CONTROLLER documented in this encounter [facility] 07-06-2023 Miscellaneous Notes Please see Mycoplasma test results and advise. Raven Gramajo MA documented in this encounter [facility] 06-26-2023 Miscellaneous Notes Per Client Services, transport media is not the same. Pt needs to come in for new specimen. message sent to patient to inform. Raven Gramajo MA Ordered, can they add that to the urine sample they have? Correct order pended. Raven Gramajo MA Can we confirm with lab that the mycoplasma testing done for this patient also evaluates for ureaplasma? His was diagnosed with ureaplasma (specifically UR Parvum) and we are trying to ensure this is not an issue he has present too that would require treatment for him also. documented in this encounter [facility] 06-26-2023 History of Present illness Narrative Radiology Service Progress Note PATIENT NAME: Rafy Hong DATE OF SERVICE: June 26, 2023 TIME: 1:20 PM PATIENT IDENTITY VERIFICATION COMPLETED USING TWO (2) IDENTIFIERS: Name and Date of confirmed by patient verbally. FALL SCREENING: Has the patient had 2 falls in the last year or 1 fall with injury or currently using an Ambulatory Assistive Device (Walker, Cane, Wheelchair, Crutches, etc.)? No PATIENT GENDER DATA: Male PATIENT RELEVANT IMPLANT DATA REVIEWED: Not Applicable PATIENT PRESENTS WITH AN IMPLANTABLE OR ATTACHED PHYSICIAN PRACTICE MANAGER: No RADIOLOGY DEPARTMENT: Ultrasound PERIPHERAL IV DATA: Not applicable SIGNED BY: Vidya Chung RDMS RVNehal June 26, 2023 1:20 PM documented in this encounter [facility] 06-25-2023 Miscellaneous Notes The test ordered was for mycoplasma. If patient has further concerns and or requires additional testing, please f/u with PCP Patient notified of result below. Asking for further clarification on recent urine testing: Patient asking if he is negative for both ureaplasma and mycoplasma species? Please advise patient. Paradise Saucedo RN Patient active MyChart/reviewed results. Patient notified via Maaguzi message. Dulce Abdalla MA Urine mycoplasma negative. Matthew Tillman APRN.BATCH TANK CONTROLLER documented in this encounter [facility] 06-24-2023 Miscellaneous Notes Patient notified and said he had appointment to day.Tyra Blunt LPN Left message for patient to return call for results.Tyra Blunt LPN Urine microscopic exam confirmed blood. Schedule follow-up with PCP or nephrology for blood and casts (protein concretions from the kidneys) in the urine. documented in this encounter [facility] 06-24-2023 History of Present illness Narrative SUBJECTIVE Rafy Hong is a 27 year old male here today for a check up on his medical problems. Chief Complaint Patient presents with: Follow Up: Seen in 06/23/23 [facility] Rafy Hong is a 27 year old male. He presents today for a follow up from being seen in . Seen in yesterday and the concern of hematuria was discussed. HE reported having seen blood in his urine since a young age. Urine dip in office yesterday showed moderate blood, casts, mycoplasma pending. Prior ultrasounds in 2013 done and found normal vascular ultrasound. Ever since around age 9 he has seen blood in his urine. Occasionally urine is Minerva but not pink or red. He did see urology or nephrology when younger. Unclear reason for why the hematuria was on going. Sometimes gets some left sided kidney pain. has an infection of mycoplasma. His medications were reviewed today and his list is now up to date. Medications Current Outpatient Medications Medication Sig loratadine (CLARITIN) 10 mg tablet Take 1 tablet by mouth once daily. albuterol HFA (PROVENTIL HFA, VENTOLIN HFA) 90 mcg/actuation inhaler Inhale 2 Puffs as instructed every 6 hours as needed for wheezing/shortness of breath. (JACKIE for Ventolin with dose counter) fluticasone (FLONASE) 50 mcg/actuation nasal spray Use 2 Sprays in each nostril once daily. Rinse mouth after use. No current facility-administered medications for this visit. ALLERGIES Allergen Reactions Jasper Trees [Ot* Other: See Comments runny nose and wheezy ACTIVE PROBLEM LIST History of Hematuria As A Child - 02/27/2015 Orthostatic Proteinuria - 07/12/2012 Family History of Cardiomyopathy - 07/08/2012 History of Glomerulonephritis - 07/08/2012 Hematuria - 07/08/2012 Asthma - 07/07/2012 Adhd (Attention Deficit Hyperactivity Disorder) Comment: was having high blood pressure when taking vyvanse Heart Murmur Social History Tobacco Use Smoking status: Light Smoker Packs/day: .1 Types: Cigarettes Smokeless tobacco: Never Tobacco comments: Not vaping now Vaping Use Vaping Use: current everyday user Substances: Nicotine Devices: Refillable tank Substance Use Topics Alcohol use: No Drug use: Yes Frequency: 1.0 times per week Types: Marijuana Comment: Daily use Review of Systems Respiratory: Negative. Cardiovascular: Negative. Genitourinary: Positive for hematuria. OBJECTIVE BP 128/84 Pulse 56 Resp 16 Wt 194 lb 8 oz (88.2kg) SpO2 97% Physical Exam Vitals and nursing note reviewed. Constitutional: General: He is awake. He is not in acute distress. Appearance: Normal appearance. He is well-developed and well-groomed. He is not ill-appearing, toxic-appearing or diaphoretic. HENT: Head: Normocephalic. Right Ear: External ear normal. Left Ear: External ear normal. Nose: Nose normal. Eyes: General: Vision grossly intact. Conjunctiva/sclera: Conjunctivae normal. Pupils: Pupils are equal, round, and reactive to light. Neck: Vascular: No JVD. Trachea: Trachea normal. Cardiovascular: Rate and Rhythm: Normal rate and regular rhythm. Pulses: Normal pulses. Heart sounds: Murmur heard. Pulmonary: Effort: Pulmonary effort is normal. No accessory muscle usage, prolonged expiration or respiratory distress. Breath sounds: Normal breath sounds. Musculoskeletal: Cervical back: Neck supple. Skin: General: Skin is warm and dry. Capillary Refill: Capillary refill takes less than 2 seconds. Neurological: General: No focal deficit present. Mental Status: He is alert and oriented to person, place, and time. Mental status is at baseline. Psychiatric: Attention and Perception: Attention and perception normal. Mood and Affect: Mood and affect normal. Speech: Speech normal. Behavior: Behavior normal. Behavior is cooperative. Thought Content: Thought content normal. Cognition and Memory: Cognition and memory normal. Judgment: Judgment normal. ASSESSMENT/PLAN: 1. Other microscopic hematuria - ICD9: 599.72, ICD10: R31.29 Update ultrasound, discussed considering nephrology or urology referral, he would like to see what the ultrasound shows and decide next steps from there. - US KIDNEY/BLADDER Portions of this note have been entered by ancillary staff. I have reviewed and when necessary edited, so that they are an adequate record of my encounter with this patient Please note that parts of this document were created using voice recognition software and therefore may contain grammatical errors. Patient verbalizes understanding of instructions from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 Procedures SPIROMETRY WITH DILATOR IF OBSTRUCTED BRNCDILAT RSPSE SPMTRY PRE&POST-BRNCDILAT Kadie Pardo MD [address] [place] [id number] Respiratory [place] [address] [place] [id number] Referral ID Status Reason Start Date Expiration Date Visits Requested Visits Authorized [id number] Pending Review Auto-Generat ed Referral 09/14/2021 10/14/2022 1 1 [facility] for referral (narrative)* Outpatient Procedure (Routine) - Pending Review Specialty Diagnoses / Procedures Referred By Charly regalado Referred To [facility] Diagnoses Mild intermittent asthma without complication Procedures SPIROMETRY - BASELINE AND POST DILATOR BRNCDILAT RSPSE SPMTRY PRE&POST-BRNCDILAT Kadie Pardo MD [address] [place] [address] [facility] [place] [address] [place] [address] Referral ID Status Reason Start Date Expiration Date Visits Requested Visits Authorized [id number] Pending Review Auto-Generat ed Referral 09/19/2022 10/19/2023 1 1 [facility] for referral (narrative)* Diagnostic Procedure Only (Routine) - Authorized Specialty Diagnoses / Procedures Referred By Charly regalado Referred To Contact US IMAGING Diagnoses Other microscopic hematuria Procedures US KIDNEY/BLADDER US RETROPERITONEAL REAL TIME W/IMAGE COMPLETE Abbie Leo APRN.CNP [address] [place] [address] Us Imaging [facility] Referral ID Status Reason Start Date Expiration Date Visits Requested Visits Authorized [id number] Authorized Auto-Generat ed Referral 06/24/2023 07/23/2024 1 1 [facility] for referral (narrative)* Diagnostic Procedure Only (Routine) - Closed Specialty Diagnoses / Procedures Referred By Contac t Referred To Contact US IMAGING Diagnoses Other microscopic hematuria Procedures US KIDNEY/BLADDER US RETROPERITONEAL REAL TIME W/IMAGE COMPLETE Abbie Leo APRN.CNP [address] [place] [phone] [place] [address] Referral ID Status Reason Start Date Expiration Date V isits Requested Visits Authorized [id number] Closed Auto-Generate d Referral 06/24/2023 07/23/2024 1 1 [facility] for referral (narrative)* Diagnostic Procedure Only (Urgent) - Closed Specialty Diagnoses / Procedures Referred By Contac t Referred To Contact XR IMAGING Diagnoses Rib pain on right side Procedures XR RIBS/CHEST 3V AP RIB/OBLS/CXR RIGHT RADEX RIBS UNI W/POSTEROANT CH MINIMUM 3 VIEWS Camila Kerr APRN.BATCH TANK CONTROLLER [address] [place] [phone] [place] [address] Referral ID Status Reason Start Date Expiration Date V isits Requested Visits Authorized [id number] Closed Auto-Generate d Referral 07/14/2023 08/12/2024 1 1 [facility] for referral (narrative)* Diagnostic Procedure Only (Urgent) - Closed Specialty Diagnoses / Procedures Referred By Contac t Referred To Contact XR IMAGING Diagnoses Rib pain on right side Procedures XR RIBS/CHEST 3V AP RIB/OBLS/CXR RIGHT RADEX RIBS UNI W/POSTEROANT CH MINIMUM 3 VIEWS Camila Kerr APRN.BATCH TANK CONTROLLER [address] [place] [address] [place] [address] Referral ID Status Reason Start Date Expiration Date V isits Requested Visits Authorized [id number] Closed Auto-Generate d Referral 07/14/2023 08/12/2024 1 1 [facility] for visit Narrative* Diagnostic Procedure Only (Urgent) - Closed Specialty Diagnoses / Procedures Referred By Charly t Referred To Contact XR IMAGING Diagnoses Rib pain on right side Procedures XR RIBS/CHEST 3V AP RIB/OBLS/CXR RIGHT RADEX RIBS UNI W/POSTEROANT CH MINIMUM 3 VIEWS Camila Kerr APRN.BATCH TANK CONTROLLER [address] [place] [address] [place] [address] Referral ID Status Reason Start Date Expiration Date V isits Requested Visits Authorized [id number] Closed Auto-Generate d Referral 07/14/2023 08/12/2024 1 1 [facility] Summary Purpose Family History No Family History Records FoundNo Family History Records FoundNo Family History Records FoundNo Family History Records Found Advance Directives No Advanced Directives Records FoundNo Advanced Directives Records FoundNo Advanced Directives Records FoundNo Advanced Directives Records Found Additional Source Comments (unrecognized sect ion and content) No Status Records FoundNo Status Records FoundNo Status Records FoundNo Status Records Found INFORMATION SOURCE (unrecogn ized section and content) DATE CREATED AUTHOR 11/09/2017 [facility] ([place]) DATE CREATED AUTHOR AUTHOR'S ORGANIZ ATION 10/27/2018 [facility] DATE CREATED AUTHOR AUTHOR'S ORGANIZ ATION 07/04/2021 [facility] DATE CREATED AUTHOR AUTHOR'S ORGANIZ ATION 12/25/2024 [facility] Source Comments (unrecognize d section and content) In the event this informatio n is protected by the Federal Confidentiality of Alcohol and Drug Abuse Patient Records regulations: The Federal rules restrict any use of the information to criminally investigate or prosecute any alcohol or drug abuse patient.[facility] the event this information is protected by the Federal Confidentiality of Alcohol and Drug Abuse Patient Records regulations: The Federal rules restrict any use of the information to criminally investigate or prosecute any alcohol or drug abuse patient.[facility] the event this information is protected by the Federal Confidentiality of Alcohol and Drug Abuse Patient Records regulations: The Federal rules restrict any use of the information to criminally investigate or prosecute any alcohol or drug abuse patient.[facility] the event this information is protected by the Federal Confidentiality of Alcohol and Drug Abuse Patient Records regulations: The Federal rules restrict any use of the information to criminally investigate or prosecute any alcohol or drug abuse patient.[facility] the event this information is protected by the Federal Confidentiality of Alcohol and Drug Abuse Patient Records regulations: The Federal rules restrict any use of the information to criminally investigate or prosecute any alcohol or drug abuse patient.[facility] the event this information is protected by the Federal Confidentiality of Alcohol and Drug Abuse Patient Records regulations: The Federal rules restrict any use of the information to criminally investigate or prosecute any alcohol or drug abuse patient.[facility] the event this information is protected by the Federal Confidentiality of Alcohol and Drug Abuse Patient Records regulations: The Federal rules restrict any use of the information to criminally investigate or prosecute any alcohol or drug abuse patient.[facility] the event this information is protected by the Federal Confidentiality of Alcohol and Drug Abuse Patient Records regulations: The Federal rules restrict any use of the information to criminally investigate or prosecute any alcohol or drug abuse patient.[facility] the event this information is protected by the Federal Confidentiality of Alcohol and Drug Abuse Patient Records regulations: The Federal rules restrict any use of the information to criminally investigate or prosecute any alcohol or drug abuse patient.[facility] the event this information is protected by the Federal Confidentiality of Alcohol and Drug Abuse Patient Records regulations: The Federal rules restrict any use of the information to criminally investigate or prosecute any alcohol or drug abuse patient.[facility] the event this information is protected by the Federal Confidentiality of Alcohol and Drug Abuse Patient Records regulations: The Federal rules restrict any use of the information to criminally investigate or prosecute any alcohol or drug abuse patient.[facility] the event this information is protected by the Federal Confidentiality of Alcohol and Drug Abuse Patient Records regulations: The Federal rules restrict any use of the information to criminally investigate or prosecute any alcohol or drug abuse patient.[facility] the event this information is protected by the Federal Confidentiality of Alcohol and Drug Abuse Patient Records regulations: The Federal rules restrict any use of the information to criminally investigate or prosecute any alcohol or drug abuse patient.[facility] the event this information is protected by the Federal Confidentiality of Alcohol and Drug Abuse Patient Records regulations: The Federal rules restrict any use of the information to criminally investigate or prosecute any alcohol or drug abuse patient.[facility] the event this information is protected by the Federal Confidentiality of Alcohol and Drug Abuse Patient Records regulations: The Federal rules restrict any use of the information to criminally investigate or prosecute any alcohol or drug abuse patient.[facility] the event this information is protected by the Federal Confidentiality of Alcohol and Drug Abuse Patient Records regulations: The Federal rules restrict any use of the information to criminally investigate or prosecute any alcohol or drug abuse patient.[facility] Reason for Visit (unrecogniz ed section and content) Reason Comments Yearly Exam Reason Comments Urinary Problem tested + for ur eaplasma infection, States he has had discomfort x 1 year before he has to urinate Reason Comments Follow Up Seen in 06/23/23 Reason Comments Results Hematuria, casts Reason Comments Results Reason Comments Radiology US Specialty Diagnoses / Procedures Referred By Contac t Referred To Contact US IMAGING Diagnoses Other microscopic hematuria Procedures US KIDNEY/BLADDER US RETROPERITONEAL REAL TIME W/IMAGE COMPLETE Abbie Leo, COMMERCIAL DESIGNER.BATCH TANK CONTROLLER [address] [place] [address] [place] [address] Referral ID Status Reason Start Date Expiration Date V isits Requested Visits Authorized [id number] Closed Auto-Generate d Referral 06/24/2023 07/23/2024 1 1 Reason Comments Pain Right side radiating into right side of chest, pain with lifting or touching, no injury noted x 3 days Reason Comments Reschedule Yearly from 09/25/23 Patient h ad to leave due to provider running behind Reason Comments Physical yearly exam Reason Comments Physical Specialty Diagnoses / Procedures Referred By Contac t Referred To Contact Internal Medicine / INTERNAL MEDICINE Diagnoses Physical exam Physical Procedures OFFICE/OUTPATIENT ESTABLISHED MOD MDM 30 MIN 4C EST WELL Self Emily Hill, COMMERCIAL DESIGNER.[address] SQL DEVELOPER [address] [place] [address] Phone: tel: fax: Referral ID Status Reason Start Date Expiration Date Visits Re quested Visits Authorized [id number] Closed 11/01/2024 01/30/2025 1 1 Reason Onset Date Comments Refill Request 12/26/2024 Care Teams (unrecognized sec tion and content) Production Inspector Relationship Specialty Start Date End Date Kadie Zaman MD [address] [place], [place] [id number] PCP - General Internal Medicine 08/22/14 Production Inspector Relationship Specialty Start Date End Date Kadie Zaman MD [address] [place], [place] [id number] PCP - General Internal Medicine 08/22/14 Production Inspector Relationship Specialty Start Date End Date Kadie Zaman MD [address] [place], [place] [id number] PCP - General Internal Medicine 08/22/14 Production Inspector Relationship Specialty Start Date End Date Kadie Zaman MD [address] [place] [address] PCP - General Internal Medicine 08/22/14 Production Inspector Relationship Specialty Start Date End Date Kadie Zaman MD [address] [place] [address] PCP - General Internal Medicine 08/22/14 Production Inspector Relationship Specialty Start Date End Date Kadie Zaman MD [address] [place] [address] PCP - General Internal Medicine 08/22/14 Production Inspector Relationship Specialty Start Date End Date Kadie Zaman MD [address] [place] [address] PCP - General Internal Medicine 08/22/14 Production Inspector Relationship Specialty Start Date End Date Kadie Zaman MD [address] [place] [address] PCP - General Internal Medicine 08/22/14 Production Inspector Relationship Specialty Start Date End Date Kadie Zaman MD [address] [place] [address] PCP - General Internal Medicine 08/22/14 Production Inspector Relationship Specialty Start Date End Date Kadie Zaman MD [address] [place] [address] PCP - General Internal Medicine 08/22/14 Production Inspector Relationship Specialty Start Date End Date Kadie Zaman MD [address] [place] [address] PCP - General Internal Medicine 08/22/14 Production Inspector Relationship Specialty Start Date End Date Kadie Zaman MD [address] [facility] [place] [address] PCP - General Internal Medicine 08/22/14 Abbie Leo COMMERCIAL DESIGNER.BATCH TANK CONTROLLER [address] [place] [address] [employer] Internal Medicine 08/09/24 Emily Hill, COMMERCIAL DESIGNER.ORACLE [address] SQL DEVELOPER [address] [facility] [place] [address] [employer] Internal Medicine 10/05/24 Production Inspector Relationship Specialty Start Date End Date Kadie Zaman MD [address] [place] [address] PCP - General Internal Medicine 08/22/14 Abbie Leo COMMERCIAL DESIGNER.BATCH TANK CONTROLLER [address] [place] [address] [employer] Internal Medicine 08/09/24 Emily Hill, COMMERCIAL DESIGNER.ORACLE [address] SQL DEVELOPER [address] [place] [address] [employer] Internal Medicine 10/05/24 Production Inspector Relationship Specialty Start Date End Date Kadie Zaman MD [address] [place] [address] PCP - General Internal Medicine 08/22/14 Abbie Leo COMMERCIAL DESIGNER.BATCH TANK CONTROLLER [address] [place] [address] [employer] Internal Medicine 08/09/[address] SQL DEVELOPER [address] [place] [address] [facility] Internal Medicine 10/05/24 FOR RECORDS PERTAINING TO PATIENTS WHO ARE OR HAVE BEEN ENROLLED IN A CHEMICAL DEPENDENCY/SUBSTANCEABUSE PROGRAM, SOME INFORMATION MAY BE OMITTED. This clinical summary was aggregated from multiple sources. Caution should be exercised in using it in the provision of clinical care. This summary normalizes information from multiple sources, and as a consequence, information in this document may materially change the coding, format and clinical context of patient data. In addition, data may be omitted in some cases. CLINICAL DECISIONS SHOULD BE BASED ON THE PRIMARY CLINICAL RECORDS. [facility]. provides no warranty or guarantee of the accuracy or completeness of information in this document.
--- NOTE | 2024-12-30 11:35 | EX.ED.DYSGE1 ---
HPI History of Present Illness Chief Complaint: Syncope Detail of Chief Complaint: Near syncope, vertigo, hypotension Informant: patient and EMS Onset/Context/Timing Onset: Today and Weeks Context: Sudden Onset Timing: Intermittent (occurred last week. He was in his car when this happened. He went back into work to get a wet rag.) Quality: Near syncope today detailed HPI narrative Location: Just started work Current Severity: Mild Maximum Severity: Severe Worsened by: Nothing Relieved by: Vertigo improves when he closes his eyes Associated Symptoms Associated Symptoms: Hypotension, pallor, diaphoresis, shortness of breath and difficulty breath Narrative Narrative: Patient is a 29-year-old male. There is no stimulant cardiac family history. There is no history of sudden . Patient states 1 week ago when he was in his car he got lightheaded and did not feel well. Went back to work. He got a wet rag and after some time it resolved. Today he was starting work. He did not feel well. He complained of spinning sensation became sweaty and nauseous. Movement of his head or change in position does not make the dizziness better or worse. He states when he closes his eyes the dizziness improves and at times resolves. Today symptoms started 1 hour prior to presentation. He had a blood pressure of 50 per squad. Charge nurse informed he had blood pressure of 50 with a heart rate of 76. This would go against vasovagal. Verbal order for 1 L of normal saline was given. When I saw patient he was pale and appears ill. For [place]ro[place]izen [place] gentleman his lips and gums were pale as well. He denies black or maroon-colored stool. He denies headache, double vision does complain of some change in his vision. He has no visual field cuts. He denies ringing in his ears decreased hearing. Denies trouble with speech or swallowing. He states it is hard to breathe and he feels short of breath. He denies chest pain. There is no history of VTE and he has no risk factors for VTE. He denies abdominal pain. He denies vomiting or diarrhea. [place] black or maroon-colored stool. He denies bruising easily. Prior similar symptoms: No Recent Illness/Hospitalization: No PFSH PFSH Home Medications ?Medication ?Instructions ?Recorded ?Last Taken ?Type NK 12/30/24 Unknown History Allergy/AdvReac Type Severity Reaction Status Date / Time No Known Allergies Allergy Verified 12/30/24 08:56 Surgical History Hx of hand surgery Social History Smoking Status: Current every day smoker tobacco type: cigarettes ROS ROS ED Constitutional Constitutional ED: Denies chills, fever(s), subjective, sweats or weight loss Eyes Eyes: Reports change in vision bilateral ENT ENT ED: Denies ear pain, rhinorrhea or sore throat Cardiovascular Cardiovascular: Denies chest pain, orthopnea, palpitations, paroxysmal nocturnal dyspnea or racing heartbeat Respiratory/Chest Respiratory/Chest: Reports dyspnea; Denies cough, orthopnea or paroxysmal nocturnal dyspnea Gastrointestinal Gastrointestinal: Reports nausea; Denies abdominal pain, diarrhea, melena or vomiting Genitourinary Genitourinary ED: Denies dysuria, hematuria or urinary frequency Musculoskeletal Musculoskeletal: Denies arthralgias or myalgias Integumentary Denies abscess or rash Neurologic Neurologic: Reports weakness; Denies headache(s) Psychiatric Psychiatric: Denies anxiety or depression Endocrine Endocrinology: Denies cold intolerance or heat intolerance Hematologic/Lymphatic Hematologic/Lymphatic: Reports systems reviewed and no addt'l complaints, except as documented EXAM Physical Exam Const Vital Signs: 12/30/24 08:53 12/30/24 08:57 12/30/24 09:53 Temperature 98.0 F Temperature Source Oral Pulse Rate 79 71 Respiratory Rate 16 18 Respiratory Effort Normal Non-Labored Respiratory Pattern Normal Blood Pressure 130/85 H 131/68 H Blood Pressure Mean 100 89 Pulse Ox 100 98 Oxygen Delivery Method Room Air Room Air 12/30/24 10:00 12/30/24 11:00 Temperature Temperature Source Pulse Rate 70 59 L Respiratory Rate 18 11 L Respiratory Effort Respiratory Pattern Blood Pressure 133/64 H 118/58 L Blood Pressure Mean 87 78 Pulse Ox 98 99 Oxygen Delivery Method Room Air Room Air Patient's initial blood pressure was 50 according to the charge nurse. This has not been documented however. I misunderstood the charge nurse. The EMS blood pressure was 50 with a heart rate of 76. Positive well nourished and well developed General Appearance ED: well developed and pallor; Negative for cyanotic or diaphoretic HEENT Reports moist mucous membranes HEENT Narrative: Head is atraumatic and normocephalic. Ears normal. Nares patent. Posterior pharynx erythema or exudate. Uvula midline. No deviation with protrusion. Patient's lips and gums are pale. Eyes EOMs intact bilaterally General Eye ED: Negative for pale conjunctiva or scleral icterus Neck no lymphadenopathy, supple and no JVD Resp normal respiratory effort and clear to auscultation bilaterally Cardio regular rate, regular rhythm, S1 normal heart sound, S2 normal heart sound and no murmurs GI normal to inspection, nondistended, normoactive bowel sounds, non-tender, non-distended and no masses; Negative for hepatosplenomegaly Palpation: soft Extremity normal to inspection Extremity Narrative: There is no asymmetry, swelling, discoloration, leg vein distention, palpable cords or tenderness along the distribution of the deep venous system. General Extremety ED: Negative for edema or tenderness General Extremity: Negative for edema Neuro oriented x3, CN's II-XII intact bilaterally and no sensory deficits noted Neuro Narrative: He is awake but not alert. There is no dysmetria. Gait was not tested. Psych mental status grossly normal Skin no rashes or lesions noted and no wounds Skin Narrative: Patient is diaphoretic. General Skin Exam: pallor; Negative for jaundice MDM MDM MDM Narrative Medical decision making narrative: With complaint of chest discomfort/hard to breathe and shortness of breath and the fact he was hypotensive this is started abruptly will obtain CTA to rule out PE. With him complaining of vertigo that is positional need to evaluate for posterior circulatory issues. Will obtain CT of the head as well as CTA of the head and neck. Appropriate blood work was obtained assess white count H&H renal function perfusion etc. Patient has had frequent premature ventricular beats on the monitor. Lab Data Lab results narrative: Patient has anemia with normal indices. Lactate is elevated 2.3. Competence of metabolic panel reveals elevated BUN to creatinine ratio approximate 21-1. Glucose slightly over 122 with a normal CO2 anion gap. With the elevated lactate presume this is due to his hypotension of uncertain etiology. Labs: Laboratory Results - last 24 hr 12/30/24 12/30/24 12/30/24 09:00 09:15 10:04 WBC 6.7 RBC 4.40 L Hgb 11.9 L Hct 35.9 L MCV 81.6 MCH 27.0 MCHC 33.1 RDW Std Deviation 38.8 RDW Coeff of Matt 13.0 Plt Count 277 MPV 10.4 Immature Gran % (Auto) 0.400 Neut % (Auto) 55.3 Lymph % (Auto) 33.4 [place] % (Auto) 6.9 Eos % (Auto) 3.6 Baso % (Auto) 0.4 Absolute Neuts (auto) 3.7 Absolute Lymphs (auto) 2.24 Nucleated RBC % 0 Sodium 139 Potassium 4.1 Chloride 103 Carbon Dioxide 21.7 Anion Gap 14 BUN 20 H Creatinine 0.98 Estim Creat Clear Calc 131.43 Est GFR (MDRD) Non-Af 108 BUN/Creatinine Ratio 20.8 H Glucose 122 H Lactic Acid 2.3 H* Calcium 9.0 Total Bilirubin 0.42 AST 19 ALT 16 Alkaline Phosphatase 47 Total Protein 6.7 Albumin 4.4 Globulin 2.2 Albumin/Globulin Ratio 2.0 POC Glucose 97 Suspect anemia is chronic and not due to an acute GI bleed since his BUN is only slightly elevated 20.8. Radiography Diagnostic Testing: Clinical Impression(s) from Imaging Studies Brain CT 12/30/24 09:05 IMPRESSION: No acute intracranial abnormality. Reading Location: [facility] Chest CTA 12/30/24 09:05 IMPRESSION: No evidence of pulmonary embolism. The lungs are clear. Reading Location: [place] [address] Head/Neck CTA 12/30/24 09:05 IMPRESSION: Unremarkable examination. Reading Location: [place] [address] EKG Initial EKG: Attestation: I personally reviewed and interpreted this EKG as follows: Interpretation: Sinus Rhythm (Rate is 75. EKG is normal. [place] interval is 156 ms Rick[place] duration 84 ms. QT duration 36 ms. [place] is normal. He has changes suggestive of benign early repolarization.) Management Discussion w/another healthcare provider: Hospitalist (Case discussed with Dr. Warren Guzman. [facility] PCU cardiac stroke workup.) Treatment and Re-Evaluation :: With patient having unifocal premature ventricular beats hypotension lactic acidosis somewhat present a week ago will contact hospitalist for observation forces full admit PCU to evaluate for cardiac etiology and possible DEPARTMENT CLINICIAN etiology with MRI since he is still complaining of vertigo even though his pressure is normal and this is not positional. Discharge Plan Triage Chief Complaint: Syncope ED Provider: Caden Castro Dx/Rx/DC Orders Clinical Impression: Acute hypotension, Vertigo, Acidosis, lactic, Anemia Prescriptions: No Action NK Primary Care Provider: Sarah Zaman Referrals: Sarah Zaman MD [Primary Care Provider] - Print Language: Lao Disposition Disposition: Acute Care Hospital [facility]
--- NOTE | 2024-12-30 11:48 | HP.PCM.HOS_ITS ---
HPI - General General Date of Admission: 12/30/24 Date of Service: 12/30/24 Chief Complaint: Syncopal episode HPI Narrative RAJ HONG, is a 29 M who presented to [facility] ED on 12/30/2024 after a syncopal episode at work. Patient has no significant past medical history. He lives at home with his and 2 young children. He works for a [employer] company. No family history of sudden cardiac . About 1 week ago he had an episode where he began feeling lightheaded, dizzy and nauseous while sitting in his car. He went back into work and got a wet rag to cool himself down, and he slowly felt better. However today, he had just gotten to work when he began to have similar symptoms. Went to talk to his boss and notes that he apparently passed out at that time, and his boss called EMS. Was noted to have a blood pressure in the 50s systolic by EMS. However, heart rate was only 76 at that time. On arrival to the ED his blood pressure had improved but was still low. He was given 1 L of normal saline with good improvement in blood pressure. CTA chest was normal. CT brain and CTA head/neck were also normal. Labs notable for lactic acid 2.3, improved to 1.4 after IV fluid resuscitation. However, given this was a second episode in a week, hospitalist was contacted for admission. I saw the patient at bedside in the ED, was present. Patient was fatigued appearing and mildly pale appearing but was otherwise sitting back comfortably in bed and answering questions appropriately. He denied any dizziness, lightheadedness or nauseousness currently. Notes that he does typically have lightheadedness/dizziness when going from sitting to standing, but this has primarily been chronic for him. He does vape both tobacco and marijuana, but notes that he has not used marijuana in about a month. Denies alcohol use. Typically drinks 3 to 4 cans of Coca-Cola per day. Denies any other significant caffeine use. Adheres to a fairly strict diet per his report and has an active lifestyle. Will be admitted for further management. [facility] Home Medications ?Medication ?Instructions ?Recorded ?Last Taken ?Type NK 12/30/24 Unknown History Allergy/AdvReac Type Severity Reaction Status Date / Time No Known Allergies Allergy Verified 12/30/24 08:56 Surgical History Hx of hand surgery Social History Smoking Status: Current every day smoker tobacco type: e-cigarettes ROS Constitutional Constitutional: Reports fatigue; Denies chills, fever(s) or weakness Eyes Eyes: Denies change in vision Cardiovascular Cardiovascular: Denies chest pain Respiratory/Chest Respiratory/Chest: Denies shortness of breath at rest Gastrointestinal Gastrointestinal: Denies abdominal pain Neurologic Neurologic: Denies dizziness, focal weakness, headache(s), numbness or tingling Vital Signs Vital Signs Vital Signs: 12/30/24 08:53 12/30/24 08:57 12/30/24 09:53 Temperature 98.0 F Temperature Source Oral Pulse Rate 79 71 Respiratory Rate 16 18 Respiratory Effort Normal Non-Labored Respiratory Pattern Normal Blood Pressure 130/85 H 131/68 H Blood Pressure Mean 100 89 Pulse Ox 100 98 Oxygen Delivery Method Room Air Room Air 12/30/24 10:00 12/30/24 11:00 Temperature Temperature Source Pulse Rate 70 59 L Respiratory Rate 18 11 L Respiratory Effort Respiratory Pattern Blood Pressure 133/64 H 118/58 L Blood Pressure Mean 87 78 Pulse Ox 98 99 Oxygen Delivery Method Room Air Room Air Weight Weight: 82.8 kg Body Mass Index (BMI) 22.8 Physical Exam Const alert, oriented x3, no apparent distress and average body habitus Constitutional Narrative: Pleasant younger male, mildly fatigued appearing and mildly pale appearing but otherwise sitting back comfortably in bed, conversing normally, in no acute distress. General Appearance: cooperative and comfortable HEENT normocephalic, head/scalp atraumatic, hearing grossly normal bilaterally, nasal mucous membranes and turbinates normal and moist oral mucous membranes Eyes PERRL, EOMs intact bilaterally and conjunctivae normal Neck full ROM Chest inspection of chest normal Resp normal respiratory effort, normal air movement, no use of accessory muscles and clear to auscultation bilaterally Cardio regular rate, regular rhythm, no murmurs and peripheral pulses 2+ throughout GI normal to inspection, nondistended, normoactive bowel sounds, soft to palpation, non-tender and non-distended Back/Spine normal ROM Extremity normal to inspection, full ROM and no pedal edema Skin no rashes or lesions noted Neuro moves all extremities and no focal motor deficits Speech: speech normal Motor Exam: strength 5/5 throughout Psych mental status grossly normal Results Lab / Micro Data 12/30/24 09:00 12/30/24 09:00 Labs: Laboratory Results - last 24 hr 12/30/24 09:00: WBC 6.7, RBC 4.40 L, Hgb 11.9 L, Hct 35.9 L, MCV 81.6, MCH 27.0, MCHC 33.1, RDW Std Deviation 38.8, RDW Coeff of Matt 13.0, Plt Count 277, MPV 10.4, Immature Gran % (Auto) 0.400, Neut % (Auto) 55.3, Lymph % (Auto) 33.4, [place] % (Auto) 6.9, Eos % (Auto) 3.6, Baso % (Auto) 0.4, Absolute Neuts (auto) 3.7, Absolute Lymphs (auto) 2.24, Nucleated RBC % 0, Sodium 139, Potassium 4.1, Chloride 103, Carbon Dioxide 21.7, Anion Gap 14, BUN 20 H, Creatinine 0.98, Estim Creat Clear Calc 131.43, Est GFR (MDRD) Non-Af 108, BUN/Creatinine Ratio 20.8 H, Glucose 122 H, Calcium 9.0, Total Bilirubin 0.42, AST 19, ALT 16, Alkaline Phosphatase 47, Total Protein 6.7, Albumin 4.4, Globulin 2.2, Albumin/Globulin Ratio 2.0 12/30/24 09:15: Lactic Acid 2.3 H* 12/30/24 10:04: POC Glucose 97 Imaging Radiology Impression Brain CT 12/30/24 09:05 IMPRESSION: No acute intracranial abnormality. Reading Location: [facility] Chest CTA 12/30/24 09:05 IMPRESSION: No evidence of pulmonary embolism. The lungs are clear. Reading Location: [facility] Head/Neck CTA 12/30/24 09:05 IMPRESSION: Unremarkable examination. Reading Location: [facility] Assessment & Plan Assessment/Plan (1) Syncope: PLAN: Plan Patient is a 29-year-old male who presented [facility] ED on 12/30/2024 after a syncopal episode. 1. Syncope ? Admit under observation status to PCU. Presented after syncopal episode at work. Reported similar presyncopal symptoms 1 week prior to this episode. Unclear etiology but vasovagal syncope in setting of some degree of dehydration seems most possible. Lactic acid 2.3 on admit, improved to 1.4 after IV fluid resuscitation. Was noted to have systolic blood pressure in the 50s with heart rate only in the 70s by EMS shortly after the event. CTA chest, CT brain and CTA head/neck were unremarkable. Orthostatic vitals normal after IV fluid resuscitation. Echo obtained on afternoon of 12/30 shows EF 60%, normal LV size and thickness, no other concerning findings. EKG with normal sinus rhythm noted. Will monitor patient overnight on cardiac telemetry and repeat labs tomorrow morning. If patient has no ectopy and labs remain stable, patient will be okay for discharge home. 2. Mild normocytic anemia ? Hemoglobin 11.9 on admit, no prior baseline available. MCV 81. Iron studies with ferritin and B12 level unremarkable. Folate pending. No active signs of bleeding noted. Repeat CBC ordered for tomorrow morning. DVT prophylaxis: Low risk, ambulate CODE STATUS: Full code, verified Expected disposition: Home, 1 to 2 days Total clinical time spent by myself addressing the patient's medical issues, reviewing all the data, and collaborating with patient's care team: 55 minutes. Charges/Coding Visit Charges Inpatient E&M: 15083 Init Hosp L2
--- NOTE | 2024-12-30 11:51 | ECHOD_ITS ---
Reason For Study Reason For Study: NEAR SYNCOPE Procedure This was a 2D Doppler, Color Flow transthoracic echocardiogram. Exam performed portable in patient room. Left Ventricle Normal left ventricle. Normal LV size. Normal left ventricular thickness. The estimated ejection fraction is 60 %. Normal diastololic function. Right Ventricle Normal RV size. Normal systolic function. Atria The left and right atria are normal. Mitral Valve The mitral valve is structurally normal. No prolapse or stenosis seen. Trivial mitral valve insufficiency. Tricuspid Valve The tricuspid valve is not well visualized. Unable to estimate RV systolic pressure due to insufficient tricuspid regurgitant envelope. Pulmonic Valve Trivial eccentric pulmonic valve insufficiency. Great Vessels Normal sized aortic root. Pericardium/Pleural No pericardial effusion. MMode/2D Measurements & Calculations LVIDd: 5.4 cm IVSd: 1.0 cm Ao root diam: 2.9 cm LVIDs: 3.3 cm LVPWd: 0.87 cm RVDd: 3.4 cm FS: 38.0 % LAV(MOD-bp): 39.1 ml LVAd ap4: 37.2 cm2 LVAd ap2: 31.3 cm2 LAV(MOD-bp) Indexed: 18.6 ml/m2 LVLd ap4: 9.2 cm LVLd ap2: 9.5 cm LAV(MOD-sp2): 38.7 ml EDV(MOD-sp4): 124.3 ml EDV(MOD-sp2): 87.9 ml LAV(MOD-sp4): 39.6 ml EDV(sp4-el): 127.2 ml EDV(sp2-el): 87.8 ml LVAs ap4: 18.5 cm2 LVAs ap2: 17.2 cm2 LVLs ap4: 6.9 cm LVLs ap2: 7.7 cm ESV(MOD-sp4): 45.6 ml ESV(MOD-sp2): 32.3 ml ESV(sp4-el): 42.1 ml ESV(sp2-el): 32.8 ml EF(MOD-sp4): 63.3 % EF(MOD-sp2): 63.3 % EF(sp4-el): 66.9 % SV(MOD-sp4): 78.7 ml SV(MOD-sp2): 55.6 ml SV(sp4-el): 85.1 ml SI(MOD-sp4): 37.3 ml/m2 SI(MOD-sp2): 26.4 ml/m2 LA A4 area: 15.8 cm2 LA dimension(2D): 3.2 cm RA A4 area: 17.6 cm2 TAPSE: 2.5 cm Time Measurements MV dec time: 0.23 sec Doppler Measurements & Calculations MV E max moises: 85.7 cm/sec Lat Peak E' Moises: 25.6 cm/sec Med Peak E' Moises: 16.7 cm/sec MV A max moises: 61.7 cm/sec E/E' lat: 3.3 E/E' med: 5.1 MV E/A: 1.4 MV V2 max: 84.8 cm/sec MV P1/2t max moises: 89.9 cm/sec Ao V2 max: 154.3 cm/sec MV max P.9 mmHg MV P1/2t: 56.5 msec Ao max P.5 mmHg MV V2 mean: 39.3 cm/sec Ao V2 mean: 111.9 cm/sec MV mean P.79 mmHg MV dec slope: 465.9 cm/sec2 Ao mean P.5 mmHg MV V2 VTI: 27.6 cm MVA(P1/2t): 3.9 cm2 Ao V2 VTI: 34.7 cm AV (velocity ratio): 0.76 LV V1 max: 128.6 cm/sec PA V2 max: 133.5 cm/sec TR max moises: 215.2 cm/sec LV V1 max P.6 mmHg PA V2 mean: 96.1 cm/sec TR max P.5 mmHg LV V1 mean P.5 mmHg LV V1 mean: 88.5 cm/sec LV V1 VTI: 26.5 cm ECHO/Echo Complete Interpretation Summary Normal left ventricle size and function, estimated left ventricular ejection fr action 60%. Normal left ventricular thickness. Normal LV size. Normal diastololic function. No hemodynamically significant valvular lesion Ordering Physician: Terrence Guzman Referring Physician: Sarah Zaman Performed By: Latasha Dickey, RADHA, RVT
[2024-12-30 13:19] LABS: Reflex Lactate? Y
[2024-12-30 14:41] LABS: Ferritin 237 ng/mL (37-417); Iron 85 ug/dL (65-175); Iron Binding Capacity,Total 284 ug/dL (250-450); Iron Binding Capacity,Unsat 199 ug/dL (228-428); Vitamin B12 593 pg/mL (180-914)
[2024-12-31 02:36] VITALS: BP 129/67; PULSE 65; RESP 16; TEMP 36.6; O2SAT 99
[2024-12-31 05:41] LABS: Hematocrit 35.8 % (40-54); Hemoglobin 11.5 g/dL (13.0-16.5); Mean Corp Hgb Conc 32.1 g/dL (32-36); Mean Corpuscular Volume 84.0 fL (80-94); Mean Platelet Vol. 11.2 fl (6.2-12.0); Platelet Count 215 K/mm3 (150-450); RBC Distribution Width CV 13.2 % (11.6-14.6); RBC Distribution Width SD 40.2 fl (35.1-43.9); Red Blood Count 4.26 M/mm3 (4.6-6.2); White Blood Count 6.4 K/mm3 (4.4-11.0)
[2024-12-31 06:14] LABS: Anion Gap 13 (5-15); BUN 20 mg/dL (4-19); BUN/Creat Ratio 23.7 RATIO (10-20); Calcium,Total 8.9 mg/dL (7.6-11.0); Carbon Dioxide 22.4 mmol/L (21.0-32.0); Chloride 102 mmol/L (98-108); Estimated Creatinine Clearance 158.07 ml/min (50-250); Glucose 97 mg/dL (70-99); Potassium 4.1 mmol/L (3.3-5.1)
[2024-12-31 09:17] VITALS: BP 134/75; PULSE 53; RESP 16; TEMP 36.7; O2SAT 100
[2024-12-31 09:44] VITALS: O2SAT 98
--- NOTE | 2024-12-31 13:45 | DCINST_ITS ---
Discharge Instructions DC O2, CPAP, BIPAP needs Home O2 Discharge instructions: No Dressing / Incision Discharge Activity: Return to Normal Activity Weight Bearing Status: Full weight bearing Follow Up Care Test Results: Test results from this visit will be discussed in further detail at your follow- up appointment, if applicable. Discharge Plan Admission Admit Date/Time: 12/30/24 11:48 Primary Reason for Your Visit: Syncope Attending Provider: Vincenzo Floyd Primary Care Provider: Sarah Zaman Consulting Providers: Terrence Guzman Discharge Orders/Prescriptions Prescriptions: No Action NK Referrals / Follow Up: Sarah Zaman MD [Primary Care Provider] - Disposition Disposition (needs filled in before D/C Order can be placed): Home, Self Care
[2024-12-31 13:47] VITALS: BP 135/90; PULSE 54; RESP 17; TEMP 36.2; O2SAT 98
--- NOTE | 2024-12-31 13:47 | PCM.DC.SUM ---
Providers Date of Admission: 12/30/24 Date of Discharge: 12/31/24 Primary Care Physician: Dr. Sarah Zaman MD Reason For Visit: SYNCOPE AND VERTIGO Diagnosis Discharge Diagnosis (1) Syncope: Status: Acute Code(s): R55 - Syncope and collapse Plan 1. Near syncope-etiology unclear #2 dehydration Medications at Discharge Home Medications NK 12/30/24 Hospital Course Operations None Procedures None Summary of Care Provided Minutes Spent on Discharge: 30 Hospital Course: This 29-year-old male was seen in the emergency room at [facility] after experiencing a brief near syncopal episode while at work. When the squad arrived to transport the patient to the ER, his blood pressure was 50, when the patient arrived in the ER his blood pressure was normal. Workup in the emergency room included labs which were remarkable for BUN of 20 and a hemoglobin of 11.9. Imaging studies were unremarkable. Patient was placed in observation status on PCU, echocardiogram was obtained which showed no abnormalities. Patient had no abnormalities on his monitor. The etiology of the patient's near syncope was unknown. On 12/31/2024, patient was seen and examined: On examination he appeared in good health and spirits. Vital signs as documented. Skin warm and dry and without overt rashes. Neck without JVD, neck was supple, trachea midline, thyroid was normal. Lungs clear bilaterally, normal air movement was noted. Heart exam notable for regular rhythm, normal sounds and absence of murmurs, rubs or gallops. Abdomen unremarkable and without evidence of organomegaly, masses, or abdominal aortic enlargement. Bowel sounds are present, abdomen is not distended. Extremities nonedematous, no cyanosis was noted, no clubbing was noted. Neuro: Cranial nerves II through XII are grossly intact, no focal motor deficits were noted, sensation to light touch and pinprick intact, motor exam 5/5 throughout. Psych: Patient is alert and oriented x3, he does not appear anxious or depressed, he does not appear agitated. Patient was discharged in stable condition on 12/31/2024 Weight / BMI Weight Weight: 83.325 kg Body Mass Index (BMI) 22.9 ABG / Lab / Microbiology Data 12/31/24 05:08 12/31/24 05:08 Laboratory: Laboratory Results - last 24 hr 12/30/24 09:00: Iron 85, TIBC 284, Iron Saturation 30.0, Unsaturated IBC 199 L, Ferritin 237, Vitamin B12 593 12/30/24 13:43: Lactic Acid 1.4 12/31/24 05:08: WBC 6.4, RBC 4.26 L, Hgb 11.5 L, Hct 35.8 L, MCV 84.0, MCH 27.0, MCHC 32.1, RDW Std Deviation 40.2, RDW Coeff of Matt 13.2, Plt Count 215, MPV 11.2, Sodium 137, Potassium 4.1, Chloride 102, Carbon Dioxide 22.4, Anion Gap 13, BUN 20 H, Creatinine 0.82, Estim Creat Clear Calc 158.07, Est GFR (MDRD) Non-Af 123, BUN/Creatinine Ratio 23.7 H, Glucose 97, Calcium 8.9 Radiography Diagnostic Testing: Radiology Impression Echocardiogram 12/30/24 11:51 Interpretation Summary Normal left ventricle size and function, estimated left ventricular ejection fraction 60%. Normal left ventricular thickness. Normal LV size. Normal diastololic function. No hemodynamically significant valvular lesion Ordering Physician: Terrence Guzman Referring Physician: Sarah Zaman Performed By: Latasha Dickey, RADHA, RVT D/C Instructions Weight Bearing Status: Full weight bearing DC O2, CPAP, BIPAP Needs Home O2 Discharge instructions: No Meaningful Use Info Meaningful Use Meaningful Use Diagnoses (Choose all that apply): None applicable Discharge Plan Admission Admit Date/Time: 12/30/24 11:48 Primary Reason for Your Visit: Syncope Attending Provider: Vincenzo Floyd Primary Care Provider: Sarah Zaman Consulting Providers: Terrence Guzman Discharge Orders/Prescriptions Prescriptions: No Action NK Referrals / Follow Up: Sarah Zaman MD [Primary Care Provider] - See Referral Note (in two weeks) Disposition Disposition (needs filled in before D/C Order can be placed): Home, Self Care Charges/Coding Visit Charges Inpatient E&M: 64139 Disch Hosp
[2025-01-01 14:08] LABS: Folate, Hemolysate Test 296.0 ng/mL (Not Estab.); Folate, RBC (Hct) Test 36.7 % (37.5-51.0); Folates, RBC Test 807 ng/mL (>498)
== END 2024-12-31 13:47 | disposition home or self-care (01) ==
LOC: ED 11:51 → PCU 12:00
PROVIDERS: Admitting Provider Hospitalist; Emergency Provider Emergency Medicine; PCP Internal Medicine; Visit Provider Internal Medicine
DX: R55 Syncope and collapse (principal); R11.0 Nausea; I95.9 Hypotension, unspecified; E87.20 Acidosis, unspecified; R06.02 Shortness of breath; F17.210 Nicotine dependence, cigarettes, uncomplicated; D64.9 Anemia, unspecified; E86.0 Dehydration
CPT/HCPCS: 36415; 70450; 70496; 70498; 71275; 80048; 80053; 82607; 82728; 82747; 82962; 83540; 83550; 83605; 85014; 85025; 85027; 93005; 93306; 96360; 97161; 99221; 99285; Q9967; A4216; G0378